=== PATIENT | female | born 1960 | race Caucasian/White ===

== ENCOUNTER 2021-02-16 18:17 | Emergency (ER) | payer OTHER, SELFPAY ==
--- NOTE | ~2021-02-16 | CT_ITS ---
EXAMINATION: CT abdomen pelvis w con DATE: 02/16/2021 19:46 INDICATION: Epigastric abdominal pain and cramping for one day TECHNIQUE: Computed tomography (CT) of the abdomen and pelvis was performed with 100 cc Omnipaque 350 intravenous contrast. Automated exposure control and iterative reconstruction technique were employe d. Exam dose: 314.22 mGy-cm total exam DLP. COMPARISON: 02/16/2019 CT abdomen pelvis FINDINGS: There is a small sliding hiatal hernia. Diffuse hepatic steatosis. No hepatic, splenic, pancreatic, and adrenal or renal space-occupying mass lesion is detected. The gallbladder is present and appears unremarkable. No bile duct or pancreatic duct dilatation. Normal caliber of the abdominal aorta. No intraperitoneal or retroperitoneal or pelvic mass lesion or adenopathy or ascites. There is thickening of the wall of the terminal ileum. There is some fecal-like content in the distal ileum and there is fluid distention of much of the sma ll bowel, measuring up to 2.5 cm diameter, with air-fluid levels. Findings suggest Crohn's disease or other inflammatory or infectious enteritis. There is mild fluid in the cecum. The colon is relatively evacuated. Minimal sigmoid colon diverticulosis; no CT evidence of diverticulitis. No intraperitoneal free air. There is a small amount of free fluid in the left paracolic gutter and b etween some small bowel loops and in the dependent pelvis. There is normal caliber of the abdominal aorta. No intraperitoneal or retroperitoneal or pelvic mass lesion or adenopathy. No suspicious osteolytic or osteoblastic lesions IMPRESSION: Thickening of the wall of terminal ileum, distal ileal mild fecal content, numerous smal l bowel segments with fluid and air-fluid levels. Findings suggest Crohn's disease or other inflammat ory or infectious enteritis Small sliding hiatal hernia Hepatic steatosis Minimal free fluid in the abdomen and pelvis Reviewed, dictated and finalized at [facility]. Reviewed, dictated and finalized at location [facility]. 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 Finding s suggest Crohn's disease or other inflammatory or infectious enteritis Small sliding hiatal hernia Hepatic steatosis Minimal free fluid in the abdomen and pelvis
[2021-02-16 18:30] VITALS: BP 154/76; PULSE 87; RESP 18; TEMP 37.1; O2SAT 98
[2021-02-16] MEDS: SODIUM CHLORIDE 0.9% IV 1,000 ML 1000 ML (18:41)
--- NOTE | 2021-02-16 18:56 | ED.NAVMDI ---
HPI - Nausea/Vomiting/Diarrhea General Chief complaint: Nausea/Vomiting/Diarrhea Stated complaint: POSSIBLE BLOCKAGE Time Seen by Provider: 02/16/21 18:20 Source: patient and RN notes reviewed Mode of arrival: ambulatory Limitations: no limitations History of Present Illness MD elicited complaint: nausea, vomiting and abdominal pain Pertinent past history: bowel obstruction and abdominal surgery Onset (ago): hour(s) (12) Description of vomiting: watery Associated nausea: Yes Associated abdominal pain: Yes Location of pain: epigastric and periumbilical Radiation: other (none) Severity: moderate Pain scale (0-10): 6 Quality: cramping, aching and dull Exacerbating factors: none Relieving factors: none Associated symptoms: loss of appetite, malaise and nausea/vomiting Related Data Allergies Allergy/AdvReac Type Severity Reaction Status Date / Time Sulfa (Sulfonamide AdvReac Unknown Rash Verified 02/16/21 18:43 Antibiotics) Review of Systems Review of Systems: All systems reviewed & are unremarkable except as noted in HPI and below Gastrointestinal: Gastrointestinal: Reports abdominal pain, Reports nausea and Reports vomiting PMFSH Past Medical History Medical History Brain bleed FHx: bowel obstruction Surgical History Surgical History History of hysterectomy for cancer Social History Social History Smoking status: Never smoker Second hand tobacco smoke exposure: No Alcohol intake: former Substance use: never Gender identity (if verbalized by the patient): Female Exam Const: General: no acute distress and alert Nutritional Appearance: well nourished Orientation/consciousness: patient oriented x3 Limitations: no limitations HENMT: Head: normal to inspection Ears: external ears normal and TM's normal bilaterally General nose exam: Normal external nose present and Normal nares present Mouth: Yes lip normal and Yes moist mucous membranes Teeth and gingiva: dentition normal Eyes: Cornea: corneas normal Pupils: Equal, round and reactive pupils present EOM: EOMs intact bilaterally Neck: Neck: normal visual inspection and no lymphadenopathy Chest: Chest palpation & inspection: normal inspection of the chest Resp: Effort & Inspection: normal respiratory effort Auscultation: clear to auscultation bilaterally Cardio: Rate: regular rate Rhythm: regular rhythm GI: GI Palp: Yes Soft to palpation and Yes Tenderness to palpation present (GI) Percussion: Yes normal to percussion Auscultation: normal bowel sounds : General: Yes bladder normal to palpation and Yes no CVA tenderness Back/Spine/Pelvis: Back: no CVA tenderness Skin: General skin exam: normal color Rashes: no rashes Neuro: General: patient oriented x3, moves all extremities, no meningeal signs, no focal motor deficits and CN's II-XI intact bilaterally Extrem: General: normal to inspection and no pedal edema Psych: Appearance: grossly normal and well kempt Mental Status: mental status grossly normal Thought content: Yes Normal thought content present Course Course Emergency Course: Pt was stable in the ED. Less painful. For home with Rx. Reevaluation(s) Reevaluation #1: No acute GI loss in the ED. Pt was comfortable and wanted to go home. Date: 02/16/21 Time: 19:16 Vital Signs Vital signs: Vital Signs Temperature 37.1 C 02/16/21 18:30 Pulse Rate 87 02/16/21 18:30 Respiratory Rate 18 02/16/21 18:30 Blood Pressure 154/76 H 02/16/21 18:30 Pulse Oximetry 98 02/16/21 18:30 Temperature 37.1 C 02/16/21 18:30 Pulse Rate 75 02/16/21 19:32 Respiratory Rate 20 02/16/21 19:32 Blood Pressure 160/80 H 02/16/21 19:32 Pulse Oximetry 96 02/16/21 19:32 MDM - Nausea/Vomiting/Diarrhea Differential Diagnosis Differential diagnosis
[2021-02-16] MEDS: ONDANSETRON INJ 4 MG/2 ML VIAL IV PUSH ×2 (19:01→21:25)
[2021-02-16] MEDS: PANTOPRAZOLE SODIUM IV 40 MG VIAL IV PUSH (19:02)
[2021-02-16] MEDS: MORPHINE SULFATE (*CRX) 2 MG/ML INJ IV PUSH (19:04)
[2021-02-16 19:06] VITALS: BP 148/80; PULSE 85; RESP 16; O2SAT 98
[2021-02-16 19:08] LABS: Basophils Absolute Auto 0.02 K/mm3 (0.00-0.10); Basophils Percent Auto 0.2 % (0.0-1.0); Hematocrit 46.6 % (35.0-49.0); Hemoglobin 15.9 g/dL (12.0-15.0); Immature Granulocyte Absolute 0.07 K/mm3 (0.00-0.00); Immature Granulocyte Percent A 0.6 % (0.0-0.0); Lymphocytes Absolute Auto 0.94 K/mm3 (1.10-4.50); Lymphocytes Percent Auto 7.7 % (18.0-42.0); Mean Corpuscular HGB Conc 34.1 g/dL (32.0-36.0); Mean Corpuscular Hemoglobin 29.7 pg (27.0-31.0); Mean Corpuscular Volume 86.9 fL (78.0-102.0); Mean Platelet Volume 10.3 fl (9.2-11.8); Monocytes Absolute Auto 0.48 K/mm3 (0.10-0.90); Neutrophils Absolute Auto 10.6 K/mm3 (1.7-7.2); Neutrophils Percent Auto 87.5 % (50.0-70.0); Platelet Count Result 209 K/mm3 (150-420); Red Blood Count 5.36 M/mm3 (4.20-5.40); Red Cell Distribution Width 12.1 % (11.6-14.4); White Blood Count 12.2 K/mm3 (4.8-10.8)
--- NOTE | 2021-02-16 19:15 | PC.NURSE ---
Report given to SHAUNA Li.
[2021-02-16 19:23] LABS: Alanine Aminotransferase 25 U/L (14-59); Albumin Level 3.8 g/dL (3.4-5.0); Alkaline Phosphatase 55 U/L (46-116); Anion Gap 13 mmol/L (8-16); Aspartate Amino Transferase 13 U/L (15-37); Bilirubin,Total 1.4 mg/dL (0.00-1.00); Blood Urea Nitrogen 16 mg/dL (7-18); Calcium 9.2 mg/dL (8.5-10.1); Carbon Dioxide 26 mmol/L (21-32); Chloride 101 mmol/L (98-108); Estimated CRCL calculation 47 ml/min; Estimated Glomerular Filt Rate 52; Glucose 148 mg/dL (70-99); Lipase 81 U/L (73-393); Osmolality Calculated 294 mOsm/kg (285-295); Potassium 3.7 mmol/L (3.5-5.1); Sodium 140 mmol/L (136-145); Total Protein 7.8 g/dL (6.4-8.2)
[2021-02-16 19:26] LABS: Lactic Acid Reflex 1.6 mmol/L (0.4-2.0)
[2021-02-16 19:32] VITALS: BP 160/80; PULSE 75; RESP 20; O2SAT 96
[2021-02-16 20:00] LABS: Add Urine Microscopic? YES; Bilirubin Urine 1+ (Negative); Blood Urine 1+ (Negative); Color Urine Yellow (Yellow); Glucose Urine UA Negative (Negative); Ketones Urine 2+ (Negative); Leukocyte Esterase Ur Negative (Negative); Nitrate Urine Negative (Negative); Protein Urine 2+ (Negative); Specific Grav Ur >= 1.030 (1.010-1.020); Urobilinogen Urine 0.2 mg/dL (0.2-1.0); pH Urine 5.5 (5.0-8.0)
[2021-02-16 20:11] LABS: Appearance Urine Sl Cloudy (Clear); Bacteria Urine 1+ /hpf; Hyaline Casts Urine 50+ /lpf; RBC Urine 0-2 /hpf (0-2); Squamous Epithelial Cell Urine Many /hpf (Few); WBC Urine 0-3 /hpf (0-3)
[2021-02-16 20:12] LABS: Mucus Urine Heavy /lpf
[2021-02-16 21:38] VITALS: BP 153/75; PULSE 84; RESP 18; TEMP 36.7; O2SAT 96
[2021-02-16 21:42] VITALS: BP 153/75; PULSE 84; RESP 16; TEMP 36.9; O2SAT 96
== END 2021-02-16 21:43 | disposition home or self-care (01) ==
PROVIDERS: Emergency Provider Emergency Medicine; PCP Family Medicine
DX: K52.9 Noninfective gastroenteritis and colitis, unspecified (principal); N39.0 Urinary tract infection, site not specified
CPT/HCPCS: 36415; 74177; 80053; 81001; 83605; 83690; 85025; 87040; 96361; 96365; 96375; 96376; 99283; 99284; C9113; J0696; J2270; J2405; J7030; Q9967

== ENCOUNTER 2021-02-17 16:41 | Observation (INO) | payer OTHER, SELFPAY ==
--- NOTE | ~2021-02-17 | XR_ITS ---
EXAMINATION: XR abdomen NG/feed tube insert EXAM DATE: 02/17/2021 20:33 INDICATION: NG placement . Terminal ileitis, ileus. TECHNIQUE: Frontal projection(s) of the abdomen for interpretation. Comparison is made to prior exami nation from earlier same date. FINDINGS: There is a nasogastric tube, tip and side-port project over gastric bubble, expected locati on. Again there are mildly dilated air-filled loops of small bowel, most likely ileus. Some component of partial small bowel obstruction from terminal ileitis not excludable. Lung bases are unremarkable . IMPRESSION: 1. Feeding tube in position. 2. Mildly dilated small bowel. Reviewed, dictated and finalized at location [facility]. 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
--- NOTE | ~2021-02-17 | XR_ITS ---
EXAMINATION: XR abdomen obstructive series EXAM DATE: 02/17/2021 17:28 INDICATION: Central abd pain x 3 days with n/v. hx of uterine cancer. TECHNIQUE: Frontal upright projection of the upper abdomen, frontal projection of the lower abdomen f or interpretation. Correlation is made to CT abdomen pelvis from yesterday. FINDINGS: There are several loops of mildly distended air-filled small bowel. There may be mild wall thickening, edema of one lower pelvic bowel loop in particular, with prominent fold pattern. Correla tion was made with CT from yesterday, which demonstrated findings consistent with terminal ileitis, m ild ileus proximally. Posterior colonic stool and gas. Lung bases unremarkable. There are no osseous abnormalities identified. IMPRESSION: Mildly dilated small bowel, lower pelvic loop with evidence of wall edema. Consistent wit h terminal ileitis, ileus. No free intraperitoneal gas. Reviewed, dictated and finalized at location [facility]. 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 Consistent with terminal ileitis, ileus. No free intraperitoneal gas.
[2021-02-17 16:48] VITALS: BP 136/72; PULSE 86; RESP 16; TEMP 37; O2SAT 96
--- NOTE | 2021-02-17 16:55 | ED.ABDPAIN ---
HPI - Abdominal Pain General Chief Complaint: Abdominal Pain Stated Complaint: AMB Time Seen by Provider: 02/17/21 17:02 Source: patient Mode of arrival: EMS Limitations: no limitations History of Present Illness HPI narrative: 60-year-old woman with a history of hysterectomy, chemotherapy and abdominal radiation therapy for cancer comes to the emergency department complaining of abdominal distension, abdominal pain, cramping, vomiting and diarrhea. Her symptoms started 2 days ago. She has had no fever, blood in her stool, blood in her vomitus, chest pain, shortness of breath, cough or cold symptoms, dysuria or hematuria. CT scan performed yesterday showed numerous small bowel segments with fluid and air-fluid levels and thickening of the wall of the terminal ileum. She states that she has had bowel obstruction in the past which responded to decompression. She has never had surgery for bowel obstructions. She has tolerated small amount of fluids today but no solid food. MD elicited complaint: abdominal pain Pertinent past history: other (Abdomen, pelvis radiation for cancer) Onset (ago): day(s) (2) Pain Consistency: constant Location: diffuse Severity: moderate Quality: cramping Radiation: none Migration to: no migration Exacerbating factors: eating Relieving factors: nothing Associated symptoms: nausea, vomiting and diarrhea Related Data Allergies Allergy/AdvReac Type Severity Reaction Status Date / Time Sulfa (Sulfonamide AdvReac Unknown Rash Verified 02/16/21 18:43 Antibiotics) Review of Systems Review of Systems: All systems reviewed & are unremarkable except as noted in HPI and below Constitutional: Constitutional: Denies chills and Denies fever(s) ENT: Denies nasal congestion and Denies sore throat Cardiovascular: Cardiovascular: Denies chest pain and Denies radiating jaw, neck or arm pain Respiratory: Respiratory: Denies cough, Denies dyspnea and Denies wheezing Gastrointestinal: Gastrointestinal: Reports abdominal pain, Reports diarrhea, Reports nausea and Reports vomiting Genitourinary: Genitourinary: Denies hematuria, Denies nocturia and Denies dysuria Musculoskeletal: Musculoskeletal: Denies back pain, Denies arthralgias and Denies joint swelling Integumentary/Breasts: Skin/Breast: Denies pruritus, Denies erythema and Denies rash Endocrine: Endocrine: Denies polydipsia and Denies polyuria Hematologic/Lymphatic: Hematologic/Lymphatic: Denies easy bleeding and Denies easy bruising Allergic/Immunologic: Allergic/Immunologic: Denies lip swelling and Denies throat swelling [facility] Past Medical History Medical History Brain bleed FHx: bowel obstruction Surgical History Surgical History History of hysterectomy for cancer Social History Social History Smoking status: Never smoker Second hand tobacco smoke exposure: No Alcohol intake: former Substance use: never Gender identity (if verbalized by the patient): Female Exam Const: General: healthy appearing and alert Orientation/consciousness: patient oriented x3 Limitations: no limitations Other: Moderate acute distress. HENMT: Head: normal to inspection Ears: external ears normal, TM's normal bilaterally and EAC's normal General nose exam: Normal nares present Face and sinus: normal facial exam Mouth: Yes moist mucous membranes Throat: posterior oropharynx normal Eyes: Conjunctivae: conjunctivae normal Pupils: Equal, round and reactive pupils present EOM: EOMs intact bilaterally Resp: Effort & Inspection: normal respiratory effort and not labored Auscultation: clear to auscultation bilaterally, no rales, no rhonchi and no wheezes Cardio: Rate: regular rate Rhythm: regular rhythm Heart sounds: no murmurs GI: GI Palp: Yes Soft to palpation, Yes Tenderness t
[2021-02-17 17:33] LABS: Basophils Absolute Auto 0.03 K/mm3 (0.00-0.10); Basophils Percent Auto 0.4 % (0.0-1.0); Eosinophils Absolute Auto 0.02 K/mm3 (0.02-0.50); Eosinophils Percent Auto 0.2 % (1.0-6.0); Hematocrit 45.5 % (35.0-49.0); Hemoglobin 15.2 g/dL (12.0-15.0); Immature Granulocyte Absolute 0.03 K/mm3 (0.00-0.00); Immature Granulocyte Percent A 0.4 % (0.0-0.0); Lymphocytes Absolute Auto 0.96 K/mm3 (1.10-4.50); Lymphocytes Percent Auto 11.3 % (18.0-42.0); Mean Corpuscular HGB Conc 33.4 g/dL (32.0-36.0); Mean Corpuscular Volume 89.7 fL (78.0-102.0); Mean Platelet Volume 10.3 fl (9.2-11.8); Monocytes Absolute Auto 0.69 K/mm3 (0.10-0.90); Monocytes Percent Auto 8.1 % (2.0-11.0); Neutrophils Absolute Auto 6.8 K/mm3 (1.7-7.2); Neutrophils Percent Auto 79.6 % (50.0-70.0); Platelet Count Result 208 K/mm3 (150-420); Red Blood Count 5.07 M/mm3 (4.20-5.40); Red Cell Distribution Width 12.2 % (11.6-14.4); White Blood Count 8.5 K/mm3 (4.8-10.8)
[2021-02-17] MEDS: ONDANSETRON INJ 4 MG/2 ML VIAL IV PUSH ×2 (17:40→23:56)
[2021-02-17] MEDS: MORPHINE SULFATE (*CRX) 4 MG/ML INJ IV PUSH (17:40)
[2021-02-17] MEDS: SODIUM CHLORIDE 0.9% IV 1,000 ML 999 ML IV CONT (17:40)
[2021-02-17] MEDS: PANTOPRAZOLE SODIUM IV 40 MG VIAL IV PUSH (17:40)
[2021-02-17 17:46] LABS: Alanine Aminotransferase 22 U/L (14-59); Albumin Level 3.4 g/dL (3.4-5.0); Alkaline Phosphatase 47 U/L (46-116); Anion Gap 11 mmol/L (8-16); Aspartate Amino Transferase 10 U/L (15-37); Bilirubin,Total 1.4 mg/dL (0.00-1.00); Blood Urea Nitrogen 16 mg/dL (7-18); Calcium 8.7 mg/dL (8.5-10.1); Carbon Dioxide 27 mmol/L (21-32); Chloride 100 mmol/L (98-108); Estimated CRCL calculation 54 ml/min; Estimated Glomerular Filt Rate > 60; Glucose 116 mg/dL (70-99); Lipase 90 U/L (73-393); Osmolality Calculated 288 mOsm/kg (285-295); Potassium 3.6 mmol/L (3.5-5.1); Sodium 138 mmol/L (136-145)
[2021-02-17 18:50] LABS: Add Urine Microscopic? YES; Appearance Urine Clear (Clear); Bilirubin Urine Negative (Negative); Blood Urine 1+ (Negative); Color Urine Yellow (Yellow); Glucose Urine UA Negative (Negative); Ketones Urine 2+ (Negative); Leukocyte Esterase Ur Negative LEU/UL (Negative); Nitrate Urine Negative (Negative); Protein Urine Negative (Negative); Specific Grav Ur 1.025 (1.010-1.020); Urobilinogen Urine 0.2 mg/dL (0.2-1.0)
[2021-02-17 18:55] LABS: Amorphous Sediment Urine Few; RBC Urine 0-2 /hpf (0-2); Squamous Epithelial Cell Urine Moderate /hpf (Few); WBC Urine 0-3 /hpf (0-3)
[2021-02-17 18:56] LABS: Bacteria Urine Trace /hpf; Mucus Urine Few /lpf
[2021-02-17 19:35] VITALS: BP 136/70; PULSE 78; RESP 18; O2SAT 98
--- NOTE | 2021-02-17 19:51 | PC.NURSE ---
Patient request to wait before trying again
[2021-02-17] MEDS: HYDROmorphone HCL INJ (*CRX) 2 MG/ML VIAL 0.5 MG IV PUSH ×2 (20:00→23:56)
[2021-02-17 20:30] VITALS: BP 140/70; PULSE 85; RESP 16; TEMP 36.6; O2SAT 98
[2021-02-17 20:58] VITALS: BP 140/70; PULSE 88; RESP 20; TEMP 36.6; O2SAT 96
--- NOTE | 2021-02-17 21:09 | PC.NURSE ---
to room 227 ER Hold
--- NOTE | 2021-02-17 21:30 | PC.NURSE ---
Addendum entered by Jena Arroyo RN 02/18/21 01:41: Integumentary and Neurological systems were also within normal limits. Original Note: Initial assessment completed. Cardiovascular, genitourinary, HENT, musculoskeletal, reproductive, and respiratory systems all within normal limits. Gastrointestinal system: patient has pain of 6-7 in abdominal area, with nausea. Patient has a history of small bowel obstruction. She is on an NG tube with low intermittent suction. Drainage is clear/yellow fluid, which appears to be thin. Patient stated she is tired, and would like to rest.
[2021-02-17 21:40] VITALS: BP 138/67; PULSE 69; RESP 14; TEMP 36.6; O2SAT 95
[2021-02-17] MEDS: DEXTROSE 5%/0.9% SOD CHL 1,000 ML 200 ML IV CONT (21:48)
[2021-02-18] VITALS (7 sets, daily range): BP systolic 136–164; BP diastolic 66–86; PULSE 64–77; RESP 16–20; TEMP 36.5–37; O2SAT 20–97
--- NOTE | 2021-02-18 02:10 | PC.NURSE ---
Patient rounding completed. Patient is sleeping comfortably in bed, with no signs of pain or discomfort.
[2021-02-18] MEDS: HYDROmorphone HCL INJ (*CRX) 2 MG/ML VIAL 0.5 MG IV PUSH ×6 (03:07→22:36)
[2021-02-18] MEDS: DEXTROSE 5%/0.9% SOD CHL 1,000 ML 200 ML IV CONT ×4 (03:08→19:14)
--- NOTE | 2021-02-18 04:13 | PC.NURSE ---
Completed patient rounding. Patient is sleeping comfortably in bed, with no signs of pain or discomfort.
--- NOTE | 2021-02-18 05:11 | PC.NURSE ---
Completed patient rounding. Patient is still sleeping comfortably in bed, with no signs of pain or discomfort. Charted output, with a 0 for output from NG tube through the Nare, as it is less than 100 mLs (the first rené on the container). The clear/yellow fluid is not quite covering the bottom of the container.
[2021-02-18 05:17] LABS: Basophils Absolute Auto 0.02 K/mm3 (0.00-0.10); Basophils Percent Auto 0.3 % (0.0-1.0); Eosinophils Absolute Auto 0.01 K/mm3 (0.02-0.50); Eosinophils Percent Auto 0.1 % (1.0-6.0); Hemoglobin 13.2 g/dL (12.0-15.0); Immature Granulocyte Absolute 0.05 K/mm3 (0.00-0.00); Immature Granulocyte Percent A 0.7 % (0.0-0.0); Lymphocytes Absolute Auto 0.82 K/mm3 (1.10-4.50); Lymphocytes Percent Auto 12.1 % (18.0-42.0); Mean Corpuscular HGB Conc 32.2 g/dL (32.0-36.0); Mean Corpuscular Hemoglobin 29.7 pg (27.0-31.0); Mean Corpuscular Volume 92.3 fL (78.0-102.0); Mean Platelet Volume 10.2 fl (9.2-11.8); Monocytes Absolute Auto 0.57 K/mm3 (0.10-0.90); Monocytes Percent Auto 8.4 % (2.0-11.0); Neutrophils Absolute Auto 5.3 K/mm3 (1.7-7.2); Neutrophils Percent Auto 78.4 % (50.0-70.0); Platelet Count Result 178 K/mm3 (150-420); Red Blood Count 4.44 M/mm3 (4.20-5.40); Red Cell Distribution Width 12.4 % (11.6-14.4); White Blood Count 6.8 K/mm3 (4.8-10.8)
[2021-02-18 05:41] LABS: Alanine Aminotransferase 19 U/L (14-59); Albumin Level 2.8 g/dL (3.4-5.0); Alkaline Phosphatase 37 U/L (46-116); Anion Gap 6 mmol/L (8-16); Aspartate Amino Transferase < 10 U/L (15-37); Bilirubin,Total 0.6 mg/dL (0.00-1.00); Blood Urea Nitrogen 11 mg/dL (7-18); Calcium 7.8 mg/dL (8.5-10.1); Carbon Dioxide 28 mmol/L (21-32); Chloride 106 mmol/L (98-108); Estimated CRCL calculation 67 ml/min; Estimated Glomerular Filt Rate > 60; Glucose 177 mg/dL (70-99); Osmolality Calculated 293 mOsm/kg (285-295); Potassium 3.9 mmol/L (3.5-5.1); Sodium 140 mmol/L (136-145)
[2021-02-18 05:45] LABS: Lactic Acid Reflex 0.9 mmol/L (0.4-2.0)
--- NOTE | 2021-02-18 06:04 | PC.NURSE ---
Completed patient rounding. Patient is sleeping comfortably in bed, with no signs of pain or discomfort.
--- NOTE | 2021-02-18 06:23 | PC.NURSE ---
Patient's called to ask about patient's progress through the night. Told him that patient had slept off and on, and was using her pain medication every 3 hours. Explained that she was still using Zofran to help with her nausea. will call later on today for an update.
[2021-02-18] MEDS: ONDANSETRON INJ 4 MG/2 ML VIAL IV PUSH ×3 (06:50→22:36)
--- NOTE | 2021-02-18 07:00 | PC.NURSE ---
Completed patient rounding. Patient asked to use commode, then stated she was having diarrhea, and it was coming out now. Patient was helped to the commode. She was able to clear herself up independently. While sitting on the commode, her NG tube fell out . Patient had a moderate amount of liquid diarrhea, brown with some small amount of soft stool. Patient stated that after she has a bowel movement, her pain usually begins to subside. Completed change of shift report while in patient's room.
--- NOTE | 2021-02-18 08:45 | PC.NURSE ---
NG tube had fallen out, physician notified and ordered to have reinserted. Patient tolerated well w/tube inserted into Left Nare w/proper placement and suction attached.
--- NOTE | 2021-02-18 13:08 | PC.NURSE ---
Patient resting comfortably in bed at this time. C/o pain in abdomen with pain meds given and effective.
--- NOTE | 2021-02-18 13:11 | PC.NURSE ---
Lanny from [facility] in [place] called and they do not have a bed as of now and do not anticipate one today. Rhina on 2nd floor notified.
--- NOTE | 2021-02-18 13:29 | PM.TDS ---
Transfer Discharge Sum: Prov Provider Primary care physician: Brian Machado, DS: Admitting Diagnosis Discharge Date 02/20/21 Admitting Diagnosis small bowel obstruction Transfer Discharge Sum: Med Medications Active and Home Medications: Home Medications acetaminophen [Tylenol] 650 mg PO Q8H PRN #20 cap 02/16/21 [Rx Confirmed 02/17/21] amoxicillin 875 mg PO Q12H #20 tablet 02/16/21 [Rx Confirmed 02/17/21] omeprazole magnesium [Prilosec OTC] 20 mg PO BID #20 tablet 02/16/21 [Rx Confirmed 02/17/21] ondansetron HCl [Zofran] 4 mg PO Q8H #14 tablet 02/16/21 [Rx Confirmed 02/17/21] Active Medications Hydromorphone HCl (Hydromorphone Hcl Inj (*Crx) 2 Mg/Ml Vial) 0.5 mg IV PUSH Q3H PRN PRN Reason: Pain Rated 7-10 Last Admin: 02/18/21 10:21 Dose: 0.5 mg Documented by: Dextrose/Sodium Chloride (Dextrose 5% Sodium Chloride 0.9%) 1,000 mls @ 200 mls/hr IV CONT .Q5H ARANZA Last Admin: 02/18/21 08:42 Dose: 200 mls/hr Documented by: Ondansetron HCl (Ondansetron Inj 4 Mg/2 Ml Vial) 4 mg IV PUSH Q6H PRN PRN Reason: Nausea And Vomiting Last Admin: 02/18/21 06:50 Dose: 4 mg Documented by: Transfer Discharge Sum: Hosp Hospital Course Hospital course: Sydney Silver is a 60 year old female with a positive family history of colon cancer with positive oncogenesgenes presumably FAP, recurrent colonic polyps for which she gets yearly colonoscopy, endometrial cancer status post hysterectomy/chemo/RT was admitted yesterday with abdominal pain, nausea, vomiting and diarrhea for the past [address] She had a [address] of the abdomen which revealed thickening of the wall of the terminal ileum a numerous small bowel segments with fluid and air-fluid levels. The patient wanted to be transferred to [facility] where her GI specialist is located. The patient did not want to consider transfer to any other facility. The patient was admitted as an ER extension and treated with NG suction and IV fluids. A repeat x-ray of the abdomen done this morning the mean mildly dilated small bowel loops without evidence of wall edema consistent with terminal ileitis and several loops of mildly distended and filled small bowel. Today the patient complains of ongoing abdominal pain which is much less than yesterday. No vomiting today as she has the NG to suction which has drained 200 mL in the past shift. The patient is passing flatus and had a small bowel movement. On examination blood pressure 164/70, pulse is 72, temperature of 36.9? alert and oriented without any focal deficit. ENT- moist mucous membranes. Chest- coarse breath sounds bilaterally present. No added sounds.- CVS- S1-S2 regular. No gallop or murmur appreciated. Abdomen- is soft. Bowel sounds are present. No tenderness/ rigidity / rebound. Diagnosis- terminal ileitis. Small-bowel obstruction Plan- continue conservative management with IV fluids and NG to suction. The patient appears clinically better. The patient's x-ray and CT scan is very suggestive of terminal ileitis. The patient has had multiple colonoscopies over the past few years and the last 1 was done very recently. Discussed with the patient about transferring her to a different facility as we do not have any surgical expertise here. Austin Alejo The patient was not transferred. The note shows up as a transfer note what it actually is a progress note. Time Spent with Patient Time attestation: Total time spent providing and/or coordinating transfer services: DS: Data Data Completed and Pending Labs on day of discharge: Labs from last 24 hours 02/18/21 02/18/21 02/18/21 04:53 04:53 04:53 WBC 6.8 RBC 4.44 Hgb 13.2 Hct 41.0 MCV 92.3 MCH 29.7 MCHC 32.2 RDW 12.4 Plt Count 178 MPV 10.2 Immature Gran % (Auto) 0.7 H Neut % (Auto) 78.4 H Lymph % (Auto) 12.1 L Bacon % (Auto) 8.4 Eos % (Auto) 0.1 L Baso % (Auto) 0.3 Lymph # (Auto) 0.82 L Bacon # (A
[2021-02-18 13:56] LABS: Amphetamine Screen Urine Negative (Negative); Barbiturate Screen Urine Negative (Negative); Benzodiazepines Screen Urine Negative (Negative); Cannabinoid Screen Urine Negative (Negative); Cocaine Screen Urine Negative (Negative); Methadone Screen Urine Negative (Negative); Opiate Screen Urine Positive (Negative); Phencyclidine Screen Urine Negative (Negative)
--- NOTE | 2021-02-18 18:52 | PC.NURSE ---
Lanny from [facility] in [place] called, still no bed for the pt. Floor notified.
--- NOTE | 2021-02-18 20:10 | PC.NURSE ---
ERP Dr Alejo in to see pt. Pt resting c NG tube in place to intermittent suction, about 50 ml clear light greenish colored bile output noted. Pt denies any pain at this time. ERP discussed need for transfer to another facility c pt since no beds still unavailable at [facility]. Pt accepts to go to [place] if able, then discussed c pts. spouse on phone about need for transfer and explained in detail to spouse the reason for delays and no beds available anywhere for transfer. Explained to spouse going to try other facilities since [place] has no beds available. Pt resting comfortably, call john in place at pts side. Abd soft at this time, tender on palpation, good + BS noted x4 quadrants.
[2021-02-18 20:20] LABS: Basophils Absolute Auto 0.02 K/mm3 (0.00-0.10); Basophils Percent Auto 0.2 % (0.0-1.0); Eosinophils Absolute Auto 0.02 K/mm3 (0.02-0.50); Eosinophils Percent Auto 0.2 % (1.0-6.0); Hematocrit 38.2 % (35.0-49.0); Hemoglobin 12.3 g/dL (12.0-15.0); Immature Granulocyte Absolute 0.14 K/mm3 (0.00-0.00); Immature Granulocyte Percent A 1.6 % (0.0-0.0); Lymphocytes Absolute Auto 1.53 K/mm3 (1.10-4.50); Lymphocytes Percent Auto 17.7 % (18.0-42.0); Mean Corpuscular HGB Conc 32.2 g/dL (32.0-36.0); Mean Corpuscular Hemoglobin 29.6 pg (27.0-31.0); Mean Platelet Volume 10.1 fl (9.2-11.8); Monocytes Absolute Auto 0.64 K/mm3 (0.10-0.90); Monocytes Percent Auto 7.4 % (2.0-11.0); Neutrophils Absolute Auto 6.3 K/mm3 (1.7-7.2); Neutrophils Percent Auto 72.9 % (50.0-70.0); Platelet Count Result 173 K/mm3 (150-420); Red Blood Count 4.15 M/mm3 (4.20-5.40); Red Cell Distribution Width 12.5 % (11.6-14.4); White Blood Count 8.6 K/mm3 (4.8-10.8)
[2021-02-18] MEDS: LACTATED RINGERS 1,000 ML 150 ML IV CONT (20:20)
[2021-02-18 20:29] LABS: Anion Gap 6 mmol/L (8-16); Blood Urea Nitrogen 6 mg/dL (7-18); Calcium 7.9 mg/dL (8.5-10.1); Carbon Dioxide 28 mmol/L (21-32); Chloride 107 mmol/L (98-108); Estimated CRCL calculation 75 ml/min; Estimated Glomerular Filt Rate > 60; Glucose 131 mg/dL (70-99); Osmolality Calculated 291 mOsm/kg (285-295); Potassium 3.3 mmol/L (3.5-5.1); Sodium 141 mmol/L (136-145)
--- NOTE | 2021-02-18 21:17 | PC.NURSE ---
Call to Sera at [place], no beds available for transfer. Dr Alejo aware, will try [facility] [place]. Call placed to [facility] for possible transfer, will call back c beds if available and surgeon. Pt informed of POC and possible transfer. Pt continues to rest, has no c/o at this time. VSS.
--- NOTE | 2021-02-18 22:38 | PC.NURSE ---
Call back from Dr Diana at [facility], refusal for transfer or acceptance. ERP Dr Alejo discussed POC c pt. to keep here tonight and try for transfer if beds available tomorrow.
--- NOTE | 2021-02-18 23:17 | PC.NURSE ---
Pt resting in side lying position, reports pain and nausea much better p given meds. Lights dimmed, call john in reach and advised pt to call if anything needed. VSS at this time.
--- NOTE | 2021-02-19 01:27 | PC.NURSE ---
Pt awake, resting at this time, reports no pain, call john within reach.
--- NOTE | 2021-02-19 02:40 | PC.NURSE ---
Pt assisted to BSC, urinated and assisted back to bed, pt sitting upright in bed, states cramping is back and nausea is back, pain med and nausea medication administered. Light dimmed and pt wants to sit up in bed for a bit. Abd. soft, tender, NG to low intermittent suction draining clear light greenish tinged bile
[2021-02-19] MEDS: ONDANSETRON INJ 4 MG/2 ML VIAL IV PUSH ×2 (02:43→10:04)
[2021-02-19] MEDS: HYDROmorphone HCL INJ (*CRX) 2 MG/ML VIAL 0.5 MG IV PUSH (02:44)
[2021-02-19] MEDS: LACTATED RINGERS 1,000 ML 150 ML IV CONT ×3 (02:50→17:06)
[2021-02-19 07:46] VITALS: BP 174/84; PULSE 64; RESP 20; TEMP 36.8; O2SAT 94
--- NOTE | 2021-02-19 08:28 | PC.NURSE ---
Patient resting in bed, awake and alert. C/O headache w/cold compress applied to forehead w/moderate relief. NG tube placed properly w/suction functional. Transfer pending confirmation of bed placement.
--- NOTE | 2021-02-19 12:36 | PC.NURSE ---
[facility] in [place], still no open bed, not likely today, will call if that changes
--- NOTE | 2021-02-19 13:05 | PC.NURSE ---
NG tube clamped and diet advanced to Clear Liquid for lunch w/10% consumed and tolerated good. No c/o abdominal pain or cramping noted at this time. Patient has had 2 small-moderate watery BM's.
[2021-02-19 13:41] VITALS: BP 169/78; PULSE 67; RESP 20; TEMP 37.4; O2SAT 92
[2021-02-19 15:22] LABS: Basophils Absolute Auto 0.03 K/mm3 (0.00-0.10); Basophils Percent Auto 0.3 % (0.0-1.0); Eosinophils Absolute Auto 0.05 K/mm3 (0.02-0.50); Eosinophils Percent Auto 0.6 % (1.0-6.0); Hematocrit 37.6 % (35.0-49.0); Hemoglobin 12.4 g/dL (12.0-15.0); Immature Granulocyte Absolute 0.22 K/mm3 (0.00-0.00); Immature Granulocyte Percent A 2.4 % (0.0-0.0); Lymphocytes Absolute Auto 1.21 K/mm3 (1.10-4.50); Lymphocytes Percent Auto 13.4 % (18.0-42.0); Mean Corpuscular Volume 90.8 fL (78.0-102.0); Mean Platelet Volume 10.5 fl (9.2-11.8); Monocytes Absolute Auto 0.56 K/mm3 (0.10-0.90); Monocytes Percent Auto 6.2 % (2.0-11.0); Neutrophils Absolute Auto 6.9 K/mm3 (1.7-7.2); Neutrophils Percent Auto 77.1 % (50.0-70.0); Platelet Count Result 178 K/mm3 (150-420); Red Blood Count 4.14 M/mm3 (4.20-5.40); Red Cell Distribution Width 12.1 % (11.6-14.4)
--- NOTE | 2021-02-19 15:28 | PC.NURSE ---
New orders received for patient to be advanced to full liquid diet and to leave the NG tube in place.
[2021-02-19 15:38] LABS: CRP 2.7 mg/dL (0.0-0.9)
--- NOTE | 2021-02-19 15:59 | PC.NURSE ---
New order received from Dr. Webber to d/c NG tube.
[2021-02-19 16:01] LABS: Alanine Aminotransferase 23 U/L (14-59); Albumin Level 2.9 g/dL (3.4-5.0); Alkaline Phosphatase 64 U/L (46-116); Anion Gap 4 mmol/L (8-16); Aspartate Amino Transferase < 10 U/L (15-37); Bilirubin,Total 0.8 mg/dL (0.00-1.00); Blood Urea Nitrogen 8 mg/dL (7-18); Calcium 8.4 mg/dL (8.5-10.1); Carbon Dioxide 32 mmol/L (21-32); Chloride 102 mmol/L (98-108); Estimated CRCL calculation 70 ml/min; Estimated Glomerular Filt Rate > 60; Glucose 101 mg/dL (70-99); Osmolality Calculated 284 mOsm/kg (285-295); Potassium 3.2 mmol/L (3.5-5.1); Sodium 138 mmol/L (136-145); Total Protein 6.3 g/dL (6.4-8.2)
[2021-02-19 16:47] VITALS: BP 175/82; PULSE 64; RESP 20; TEMP 37.3; O2SAT 95
--- NOTE | 2021-02-19 17:07 | PC.NURSE ---
NG tube removed and diet advanced to full liquid diet. Patient tolerated removal NG tube well.
--- NOTE | 2021-02-19 17:49 | PC.NURSE ---
Patient consumed 50% full liquid diet @ dinner
--- NOTE | 2021-02-19 23:29 | PC.NURSE ---
Pt whiteboard updated. Pt was in the process of ambulating to the bedside commode. Call light within reach.
[2021-02-19] MEDS: methylPREDNISolone SOD SUCC 40 MG VIAL 20 MG IV PUSH (23:58)
[2021-02-20 00:05] VITALS: BP 156/88; PULSE 71; RESP 14; TEMP 37.1; O2SAT 95
--- NOTE | 2021-02-20 00:23 | P.PNCROSS_ITS ---
Event Note Event Note Event Note: S: Sydney was feeling better. Her appetite had increased, pain decreased as well as nausea. She was amenable to clamping the NG tube and advancing her diet. She tolerated full liquids and the NG tube was pulled after she had multple BM. O: Lying in bed without signs of distress. NOrmal bowel sounds. No TTP. See chart for vitals. A/P: Obstruction type symptoms improving. Given repeat labs showed no white count and symptoms did not worsen I believed her picture was more consistent with IBD so steroids were started and we continued to advance her diet all while awaiting transfer. [facility] was contacted multiple times but no bed was open.
--- NOTE | 2021-02-20 00:32 | PC.NURSE ---
Pt complained of squeaking when she breathes. Sydney denies having any pain with this finding, but does finding it annoying. This bond underwriter listened to the area and an audible squeak is present. Charge nurse notified of this finding and stated there could be some irritation from the pt having an NG in place prior. This bond underwriter will continue to assess regularly for any changes.
--- NOTE | 2021-02-20 02:03 | PC.NURSE ---
Patient rounding completed. Pt is currently sleeping on her right side with the bed in the lowest position. Call light within reach.
--- NOTE | 2021-02-20 04:16 | PC.NURSE ---
Patient rounding completed. Sydney is in pleasant mood at this time. A pillow for back support was provided to the pt along with 550 ml of fresh ice water. The expiratory wheeze is still present/audible at the pt's lower larynx. Pt denies pain at the site at this time, but stated she feels it more when laying on her back. Trash cans were emptied in pt room. Pt was laying on her right side with call light within reach when this medical writer exited the room.
[2021-02-20 04:18] VITALS: BP 172/86; PULSE 62; RESP 16; TEMP 37; O2SAT 94
--- NOTE | 2021-02-20 05:44 | PC.NURSE ---
[facility] in [place] called, still no open beds at this time, will call for any changes
[2021-02-20] MEDS: methylPREDNISolone SOD SUCC 40 MG VIAL 20 MG IV PUSH ×3 (05:50→18:03)
[2021-02-20] MEDS: LACTATED RINGERS 1,000 ML 150 ML IV CONT ×2 (06:51)
[2021-02-20 07:45] VITALS: BP 176/84; PULSE 61; RESP 16; TEMP 36.8; O2SAT 96
--- NOTE | 2021-02-20 08:10 | ADMGEN ---
This patient, Sydney Silver, was admitted to 2nd Floor Room 227-2 as and Observation due to small bowel obstruction. Patient/family oriented to hospital policies and general routines including ID bracelet, bed and alarms, visiting hours, pain management, procedures, bathroom and other care routines, personal items, smoking policy, room service/diet, and visiting hours. Information on how to activate the Rapid Response Team has been discussed. Patient/Family are encouraged to report perceived risks to care and to ask questions if they do not understand what they are told or what they should do.
[2021-02-20 09:53] VITALS: BMI 28.2
[2021-02-20 10:13] LABS: Hematocrit 38.1 % (35.0-49.0); Hemoglobin 12.9 g/dL (12.0-15.0); Mean Corpuscular HGB Conc 33.9 g/dL (32.0-36.0); Mean Corpuscular Hemoglobin 29.9 pg (27.0-31.0); Mean Corpuscular Volume 88.2 fL (78.0-102.0); Mean Platelet Volume 10.4 fl (9.2-11.8); Platelet Count Result 173 K/mm3 (150-420); Red Blood Count 4.32 M/mm3 (4.20-5.40); Red Cell Distribution Width 11.9 % (11.6-14.4); White Blood Count 7.9 K/mm3 (4.8-10.8)
[2021-02-20 10:31] LABS: Anion Gap 11 mmol/L (8-16); Blood Urea Nitrogen 10 mg/dL (7-18); Calcium 8.8 mg/dL (8.5-10.1); Carbon Dioxide 28 mmol/L (21-32); Chloride 99 mmol/L (98-108); Estimated CRCL calculation 73 ml/min; Estimated Glomerular Filt Rate > 60; Glucose 140 mg/dL (70-99); Osmolality Calculated 287 mOsm/kg (285-295); Potassium 3.6 mmol/L (3.5-5.1); Sodium 138 mmol/L (136-145)
--- NOTE | 2021-02-20 11:25 | ED.ABDPAIN ---
HPI - Abdominal Pain General Chief Complaint: Abdominal Pain Stated Complaint: AMB Time Seen by Provider: 02/17/21 17:02 Source: patient Mode of arrival: EMS Limitations: no limitations History of Present Illness MD elicited complaint: abdominal pain Pertinent past history: other (Abdomen, pelvis radiation for cancer) Onset (ago): day(s) (2) Pain Consistency: constant Location: diffuse Severity: moderate Quality: cramping Radiation: none Migration to: no migration Exacerbating factors: eating Relieving factors: nothing Associated symptoms: nausea, vomiting and diarrhea Related Data Allergies Allergy/AdvReac Type Severity Reaction Status Date / Time Sulfa (Sulfonamide AdvReac Unknown Rash Verified 02/16/21 18:43 Antibiotics) [facility], [facility] Past Medical History Medical History Brain bleed FHx: bowel obstruction Surgical History Surgical History History of hysterectomy for cancer Social History Social History Smoking status: Never smoker Second hand tobacco smoke exposure: No Alcohol intake: never Substance use: never Gender identity (if verbalized by the patient): Female Spiritual care concerns: No Course Vital Signs Vital signs: Vital Signs Temperature 37.0 C 02/17/21 16:48 Pulse Rate 86 02/17/21 16:48 Respiratory Rate 16 02/17/21 16:48 Blood Pressure 136/72 02/17/21 16:48 Pulse Oximetry 96 02/17/21 16:48 Temperature 36.8 C 02/20/21 07:45 Pulse Rate 61 02/20/21 07:45 Respiratory Rate 16 02/20/21 07:45 Blood Pressure 176/84 H 02/20/21 07:45 Pulse Oximetry 96 02/20/21 07:45 MDM - Abdominal Pain Lab Data Result diagrams: 02/20/21 10:05 02/20/21 10:05 Labs: Lab Results 02/17/21 02/17/21 02/17/21 Range/Units 17:28 17:28 17:28 WBC 8.5 (4.8-10.8) K/mm3 RBC 5.07 (4.20-5.40) M/mm3 Hgb 15.2 H (12.0-15.0) g/dL Hct 45.5 (35.0-49.0) % MCV 89.7 (78.0-102.0) fL MCH 30.0 (27.0-31.0) pg MCHC 33.4 (32.0-36.0) g/dL RDW 12.2 (11.6-14.4) % Plt Count 208 (150-420) K/mm3 MPV 10.3 (9.2-11.8) fl Immature Gran % (Auto) 0.4 H (0.0-0.0) % Neut % (Auto) 79.6 H (50.0-70.0) % Lymph % (Auto) 11.3 L (18.0-42.0) % [place] % (Auto) 8.1 (2.0-11.0) % Eos % (Auto) 0.2 L (1.0-6.0) % Baso % (Auto) 0.4 (0.0-1.0) % Lymph # (Auto) 0.96 L (1.10-4.50) K/mm3 [place] # (Auto) 0.69 (0.10-0.90) K/mm3 Eos # (Auto) 0.02 (0.02-0.50) K/mm3 Baso # (Auto) 0.03 (0.00-0.10) K/mm3 Abs Immat Gran (auto) 0.03 H (0.00-0.00) K/mm3 Absolute Neuts (auto) 6.8 (1.7-7.2) K/mm3 Absolute Nucleated RBC 0.00 (0.00-0.00) K/mm3 Nucleated RBC % 0.0 (0-0.0) % Sodium 138 (136-145) mmol/L Potassium 3.6 (3.5-5.1) mmol/L Chloride 100 (98-108) mmol/L Carbon Dioxide 27 (21-32) mmol/L Anion Gap 11 (8-16) mmol/L BUN 16 (7-18) mg/dL Creatinine 0.93 (0.55-1.02) mg/dL Estim Creat Clear Calc 54 ml/min Estimated GFR > 60 (59 - ) Glucose 116 H (70-99) mg/dL Calculated Osmolality 288 (285-295) mOsm/kg Lactic Acid 1.0 (0.4-2.0) mmol/L Calcium 8.7 (8.5-10.1) mg/dL Total Bilirubin 1.4 H (0.00-1.00) mg/dL AST 10 L (15-37) U/L ALT 22 (14-59) U/L Alkaline Phosphatase 47 (46-116) U/L C-Reactive Protein (0.0-0.9) mg/dL Total Protein 7.0 (6.4-8.2) g/dL Albumin 3.4 (3.4-5.0) g/dL Lipase 90 (73-393) U/L Urine Color (Yellow) Urine Appearance (Clear) Urine pH (5.0-8.0) Ur Specific [place] (1.010-1.020) Urine Protein (Negative) Urine Glucose (UA) (Negative) Urine Ketones (Negative) Ur Blood (Man) (Negative) Urine Nitrate (Negative) Urine Bilirubin (Negative) Urine Urobilinog
--- NOTE | 2021-02-20 13:39 | PM.IMHP ---
H&P: HPI History of Present Illness Date/Time: 02/20/21 13:39 Sydney Silver is a 60 year old female who was an ER hold for the past couple days pending bed availability at another facility for her possible SBO. Today she is being admitted under Observation for her Abdominal Pain. Pt states she had Uterine CA a while ago. After her Hysterectomy, Chemo, and Radiation she started having SBOs which slow became fewer and fewer over time. She states that over the weekend her abdomen started to feel like it did when she would have SBOs in the past. She did come to the ER on 02/16/2021 and subsequently discharged with a UTI and antibiotics. She then returned the next day to the ER. [facility] in [place] was called and Dr. Sweet from our ER spoke with Dr. Rowley who was willing to see this Pt however there were no beds available at that time. She was then placed on and ER hold. Since then she has improved slowly to the point she tolerated a heart healthy diet without increased abdominal pain, Nausea, or Vomiting. Chief Complaint: Abdominal Pain Review of Systems Review of Systems: All systems reviewed & are unremarkable except as noted in HPI and below PMFSH Past Medical History Medical History Brain bleed FHx: bowel obstruction Surgical History Surgical History History of hysterectomy for cancer Social History Social History Smoking status: Never smoker Second hand tobacco smoke exposure: No Alcohol intake: never Substance use: never Gender identity (if verbalized by the patient): Female Spiritual care concerns: No Meds Home Medications and Allergies Home Medications Medication Instructions Recorded Confirmed Type acetaminophen [Tylenol] 650 mg PO Q8H PRN #20 cap 02/16/21 02/17/21 Rx amoxicillin 875 mg PO Q12H #20 tablet 02/16/21 02/17/21 Rx omeprazole magnesium [Prilosec OTC] 20 mg PO BID #20 tablet 02/16/21 02/17/21 Rx ondansetron HCl [Zofran] 4 mg PO Q8H #14 tablet 02/16/21 02/17/21 Rx Allergies Allergy/AdvReac Type Severity Reaction Status Date / Time Sulfa (Sulfonamide AdvReac Unknown Rash Verified 02/16/21 18:43 Antibiotics) Vital Signs Vital Signs - 24 hr 02/19/21 13:41 02/19/21 16:47 02/20/21 00:05 Temperature 99.3 F 99.2 F 98.8 F Pulse Rate 67 64 71 Respiratory Rate 20 20 14 Blood Pressure 169/78 H 175/82 H 156/88 H Pulse Oximetry 92 95 95 02/20/21 04:18 02/20/21 07:45 Temperature 98.6 F 98.3 F Pulse Rate 62 61 Respiratory Rate 16 16 Blood Pressure 172/86 H 176/84 H Pulse Oximetry 94 96 Exam Const: General: cooperative, healthy appearing, comfortable, no acute distress, well developed, alert, awake and Physically active Nutritional Appearance: average body habitus and well nourished Resp: Effort & Inspection: normal respiratory effort Auscultation: clear to auscultation bilaterally Cardio: Rate: regular rate Heart sounds: S1 normal heart sound present and S2 normal heart sound present GI: Inspection: distended GI Palp: Yes Soft to palpation, Yes Tenderness to palpation present (GI) (mild with percussion) and No Guarding due to palpation present (GI) Percussion: Yes normal to percussion and Yes tympanic to percussion (epigastric) Auscultation: Hypoactive bowel sounds present Skin: General skin exam: normal color and dry skin Neuro: General: oriented to person, oriented to place and oriented to time Cranial nerves: Yes CN's II-XII intact bilaterally (grossly intact) Cognition (Neuro): normal cognition Speech: normal speech Gait exam (Neuro): Normal gait present Motor exam (neuro): 5/5 motor strength present throughout Extrem: General: full ROM and no pedal edema Psych: Appearance: grossly normal Mental Status: mental status grossly normal Speech and movement: Normal speech and movement pr
[2021-02-20 15:35] VITALS: BP 163/79; PULSE 62; RESP 18; TEMP 37.2; O2SAT 97
[2021-02-21] VITALS: BP 167/84; PULSE 58; RESP 18; TEMP 36.9; O2SAT 94
[2021-02-21] MEDS: methylPREDNISolone SOD SUCC 40 MG VIAL 20 MG IV PUSH ×3 (00:14→13:30)
[2021-02-21 05:23] LABS: Hematocrit 37.5 % (35.0-49.0); Hemoglobin 12.6 g/dL (12.0-15.0); Mean Corpuscular HGB Conc 33.6 g/dL (32.0-36.0); Mean Corpuscular Hemoglobin 29.5 pg (27.0-31.0); Mean Corpuscular Volume 87.8 fL (78.0-102.0); Mean Platelet Volume 10.4 fl (9.2-11.8); Platelet Count Result 190 K/mm3 (150-420); Red Blood Count 4.27 M/mm3 (4.20-5.40); Red Cell Distribution Width 12.1 % (11.6-14.4); White Blood Count 8.8 K/mm3 (4.8-10.8)
[2021-02-21 05:36] LABS: Anion Gap 10 mmol/L (8-16); Blood Urea Nitrogen 15 mg/dL (7-18); Calcium 8.8 mg/dL (8.5-10.1); Carbon Dioxide 28 mmol/L (21-32); Chloride 100 mmol/L (98-108); Estimated CRCL calculation 64 ml/min; Estimated Glomerular Filt Rate > 60; Glucose 142 mg/dL (70-99); Osmolality Calculated 288 mOsm/kg (285-295); Potassium 3.7 mmol/L (3.5-5.1); Sodium 138 mmol/L (136-145)
[2021-02-21 08:00] VITALS: BP 168/85; PULSE 55; RESP 18; TEMP 36.8; O2SAT 97
--- NOTE | 2021-02-21 08:25 | PM.DS ---
DS: Admitting Diagnosis Discharge Date 02/21/2021 Admitting Diagnosis Abdominal Pain DS: Discharge Diagnosis Discharge Diagnosis (1) Abdominal pain: Code(s): R10.9 - Unspecified abdominal pain Status: Acute Assessment and Plan: DDx: SBO vs Crohn's vs other inflammatory or infectious enteritis, WBC 7.9, Electrolytes and renal function normal, Pt was NPO now with heart healthy diet and tolerating well, Pt did have some diarrhea but this has since started to resolve as Pt is reporting soft stools at this time. Continue with Methylprednisolone and Dilaudid for pain control 02/21/2021 Pt has been improving. She now has no abdominal pain and without any nausea or vomiting. She is tolerating PO food and fluids well. No diarrhea. Pt will be able to follow up with PCP. DS: Summary Hospital Course Hospital Course: Abdominal pain resolved, Pt to follow up with PCP. Time Spent with Patient Time attestation: Total time spent providing and/or coordinating discharge services: < 30 minutes Exam Const: General: cooperative, healthy appearing, comfortable, no acute distress, well developed, alert, awake and Physically active Nutritional Appearance: average body habitus Resp: Effort & Inspection: normal respiratory effort Auscultation: clear to auscultation bilaterally Cardio: Rate: regular rate Heart sounds: S1 normal heart sound present and S2 normal heart sound present GI: GI Palp: Yes Soft to palpation and No Tenderness to palpation present (GI) Auscultation: normal bowel sounds Skin: General skin exam: normal color and dry skin Neuro: General: oriented to person, oriented to place, oriented to time and CN's II-XI intact bilaterally (grossly intact) Cognition (Neuro): normal cognition Speech: normal speech Extrem: General: full ROM and no pedal edema Psych: Appearance: grossly normal Mental Status: mental status grossly normal Speech and movement: Normal speech and movement present Affect: normal affect Attitude: cooperative Thought process: Normal thought process present DS: Data Data Completed and Pending Labs on day of discharge: Labs from last 24 hours 02/21/21 02/21/21 02/20/21 05:08 05:08 10:05 WBC 8.8 RBC 4.27 Hgb 12.6 Hct 37.5 MCV 87.8 MCH 29.5 MCHC 33.6 RDW 12.1 Plt Count 190 MPV 10.4 Sodium 138 138 Potassium 3.7 3.6 Chloride 100 99 Carbon Dioxide 28 28 Anion Gap 10 11 BUN 15 10 Creatinine 0.79 0.68 Estim Creat Clear Calc 64 73 Estimated GFR > 60 > 60 Glucose 142 H 140 H Calculated Osmolality 288 287 Calcium 8.8 8.8 02/20/21 10:05 WBC 7.9 RBC 4.32 Hgb 12.9 Hct 38.1 MCV 88.2 MCH 29.9 MCHC 33.9 RDW 11.9 Plt Count 173 MPV 10.4 Sodium Potassium Chloride Carbon Dioxide Anion Gap BUN Creatinine Estim Creat Clear Calc Estimated GFR Glucose Calculated Osmolality Calcium Discharge Plan Discharge Attending physician on discharge: Luis Sweet Discharging Clinician: Issac Lawton Anticipated Discharge Date/Time: 02/21/21 10:30 Patient Disposition: Home, Self-Care Activity: as tolerated Diet: heart healthy Discharge Instructions: you will have a taper pack of steroids waiting for you at your pharmacy of choice follow up with your PCP and GI provider if you have one. Patient Instructions: Lisinopril (By mouth), Methylprednisolone (By mouth), Abdominal Pain (GEN), Bowel Obstruction (DC) Stand Alone Forms: General Discharge Information Follow-up/Referrals: Dmitry Rowley MD [Other] (Follow up for Gastroenterology ) Jeannette,MD Brian [Primary Care Provider] - 02/24/21 11:30 am Discharge Medications: New methylprednisolone [Medrol ([place])] 4 mg tablets,dose pack See Rx Instructions .ROUTE .COMPLEX Qty: 21 RF: 0 lisinopril 10 mg tablet 10 mg PO DAILY Qty: 30 RF: 0 Continued ondansetron HCl [Zofran] 4 mg tablet 4 mg PO Q8H Qty
--- NOTE | 2021-02-21 13:40 | PC.NURSE ---
Discharge instructions reviewed with patient, verbalizes understanding. Patient ambulated from floor.
--- NOTE | 2021-02-26 14:42 | PC.NURSE ---
Unable to contact for discharge call back.
== END 2021-02-21 13:40 | disposition home or self-care (01) ==
LOC: CHSED 18:26 → CHS2ND 21:03 → CHSED 02-20 08:48 → CHS2ND 02-20 08:48
PROVIDERS: Emergency Medicine; Internal Medicine Critical Care Medicine; Nurse Practitioner Family; Admitting Provider Emergency Medicine; Emergency Provider Family Medicine; PCP Family Medicine; Visit Provider Emergency Medicine
DX: R10.9 Unspecified abdominal pain (principal); Z85.42 Personal history of malignant neoplasm of other parts of uterus; Z80.0 Family history of malignant neoplasm of digestive organs; Z92.3 Personal history of irradiation; Z90.710 Acquired absence of both cervix and uterus
CPT/HCPCS: 36415; 74019; 80048; 80053; 80307; 81001; 83605; 83690; 85025; 85027; 86140; 96361; 96374; 96375; 96376; 99285; C9113; G0378; G0379; J1170; J2270; J2405; J2920; J7030; J7042; J7120

== ENCOUNTER 2022-08-26 08:31 | Outpatient (CLI) | payer OTHER, SELFPAY ==
--- NOTE | ~2022-08-26 | MM_ITS ---
EXAMINATION: MM screening raj BI w keyanna HISTORY: Screening mammogram TECHNIQUE: Craniocaudal and mediolateral oblique 3-D tomosynthesis images were obtained and synthetic 2-D images were generated. CAD analysis was submitted and interpreted. COMPARISON: No prior mammogram is available for comparison at this institution. BREAST PARENCHYMAL COMPOSITION: There are scattered areas of fibroglandular density. FINDINGS: Scattered benign-appearing calcifications are present. No suspicious mass, calcification, o r architectural distortion are identified in either breast to suggest malignancy. IMPRESSION: 1. No mammographic evidence of malignancy. 2. Recommend routine screening mammography in one year. BI-RADS Category 2: Benign finding(s). Reviewed, dictated and finalized at location A.
== END 2022-08-26 08:32 | disposition home or self-care (01) ==
LOC: CHSIMG 08:35
PROVIDERS: PCP Family Medicine; Visit Provider Family Medicine
DX: Z12.31 Encounter for screening mammogram for malignant neoplasm of breast (principal)
CPT/HCPCS: 77063; 77067

== ENCOUNTER 2023-08-30 13:54 | Outpatient (CLI) | payer OTHER, SELFPAY ==
--- NOTE | ~2023-08-30 | MM_ITS ---
EXAMINATION: MM screening raj BI w keyanna HISTORY: Screening TECHNIQUE: Craniocaudal and mediolateral oblique 3-D tomosynthesis images were obtained and synthetic 2-D images were generated. CAD analysis was submitted and interpreted. COMPARISON: 08/26/2022 BREAST PARENCHYMAL COMPOSITION: Not dense: There are scattered areas of fibroglandular density. FINDINGS: There is a dense mildly enlarged left axillary lymph node. There is no evidence of suspicio us mass, calcification, or architectural distortion to suggest malignancy in either breast. IMPRESSION: 1. Mild left axillary lymphadenopathy, new since prior study. 2. Additional spot compression and mediolateral views with possible follow-up breast ultrasound recom mended. BI-RADS Category 0: Incomplete: Needs additional imaging evaluation. Reviewed, dictated and finalized at location A. IMPRESSION: 1. Mild left axillary lymphadenopathy, new since prior study. 2. Additional spot compression and mediolateral views with possible follow-up b reast ultrasound recommended. BI-RADS Category 0: Incomplete: Needs additional imaging evaluation.
== END 2023-08-30 13:55 | disposition home or self-care (01) ==
PROVIDERS: PCP Family Medicine; Visit Provider Family Medicine
DX: Z12.31 Encounter for screening mammogram for malignant neoplasm of breast (principal); R92.8 Other abnormal and inconclusive findings on diagnostic imaging of breast
CPT/HCPCS: 77063; 77067

== ENCOUNTER 2023-09-07 09:39 | Outpatient (CLI) | payer OTHER, SELFPAY ==
--- NOTE | ~2023-09-07 | MMUS_ITS ---
EXAMINATION: MM diagnostic raj LT w keyanna, US breast LT limited HISTORY: Follow-up left breast mass. TECHNIQUE: Additional 3-D tomosynthesis images of the left breast were performed and synthetic 2-D im ages were generated. CAD analysis was submitted and interpreted. High resolution Limited left breast ultrasound was performed. COMPARISON: Comparison to multiple prior studies sequentially, with oldest reviewed study dated 08/26/2022. BREAST PARENCHYMAL COMPOSITION: Not dense: There are scattered areas of fibroglandular density. FINDINGS: MAMMOGRAPHIC FINDINGS: There is a persistent low-density mass with central lucency overlying the pectoralis muscle, most com patible with a axillary lymph node. No suspicious masses, calcifications or architectural distortion in the left breast to suggest malignancy. ULTRASOUND: Limited left breast ultrasound: There are normal-appearing lymph nodes of the left axilla correspondi ng to the mammographic abnormality. No suspicious left breast masses to suggest malignancy. IMPRESSION: 1. No evidence for malignancy in the left breast. 2. . Routine yearly screening mammogram and regular clinical breast examination are recommended. BI-RADS Category 2: Benign finding(s). Reviewed, dictated and finalized at location B. IMPRESSION: 1. No evidence for malignancy in the left breast. 2. . Routine yearly screening mammogram and regular clinical breast examination are recommended. BI-RADS Category 2: Benign finding(s).
== END 2023-09-07 09:40 | disposition home or self-care (01) ==
LOC: CHSIMG 09:41
PROVIDERS: PCP Family Medicine; Visit Provider Family Medicine
DX: R92.8 Other abnormal and inconclusive findings on diagnostic imaging of breast (principal)
CPT/HCPCS: 76642; 77061; 77065; G0279

== ENCOUNTER 2024-09-12 12:46 | Outpatient (CLI) | payer OTHER, SELFPAY ==
--- NOTE | ~2024-09-12 | MM_ITS ---
EXAMINATION: MM screening raj BI w keyanna HISTORY: Screening mammogram TECHNIQUE: Craniocaudal and mediolateral oblique 3-D tomosynthesis images were obtained and synthetic 2-D images were generated. CAD analysis was submitted and interpreted. COMPARISON: 08/30/2023 and 08/26/2022 BREAST PARENCHYMAL COMPOSITION: There are scattered areas of fibroglandular density. FINDINGS: Scattered benign-appearing calcifications are present. No suspicious mass, calcification, o r architectural distortion are identified in either breast to suggest malignancy. IMPRESSION: 1. No mammographic evidence of malignancy. 2. Recommend routine screening mammography in one year. BI-RADS Category 2: Benign finding(s). Reviewed, dictated and finalized at location B.
--- OUTSIDE RECORDS SUMMARY | 2024-09-12 12:52 | XMS_ITS | Clinical Summary ---
Author Organization [facility] Address [address] [place] [address] Care Team Providers Care Shredding Machine Tender Name Role Phone Bert Bee MD Primary Care Provider Source Comments [facility],non-owned Affiliates and Associated Physician Practices is amultiple site organization consisting of ambulatory clinics and hospital sitesin [place], [place], [place] and [place]. This disclosure is being madepursuant to the Care Everywhere program and may not contain all information available regarding this patient. 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 Gender Identity Not on file Sexual Orientation Not on file Last Filed Vital Signs Vital Sign Reading Time Taken Comments Blood Pressure 140/79 09/25/2014 11:17 AM CDT Pulse 64 09/25/2014 11:17 AM CDT Temperature 35.8 C (96.5 F) 08/27/2014 6:53 AM CDT Respiratory Rate 15 08/27/2014 10:15 AM CDT Oxygen Saturation 97% 08/27/2014 10:15 AM CDT Inhaled Oxygen Concentration - - Weight 66.7 kg (147 lb) 09/25/2014 11:17 AM CDT Height 160 cm (5' 3) 08/27/2014 6:53 AM CDT Body Mass Index 26.04 08/27/2014 6:53 AM CDT Plan of Treatment Health Maintenance Due Date Last Done Comments MARK ANTHONY (AGES 45-75) - COL ON CA SCREENING 1961 COLON MONITORING 1961 COLONOSCOPY - COLON CA SCREENING 1961 CT COLONOGRAPHY - COLON CA SCREENING 1961 Colorectal Cancer Screening 1961 FIT - COLON CA SCREENING 1961 FLEX SIG - COLON CA SCREENING 1961 LIPID TESTING 1961 MAMMOGRAM 1961 HIV SCREENING 1976 HEPATITIS C SCREENING 03/11/1979 DTAP/TDAP/TD VACCINES (1 - Tdap) 1980 PNEUMOCOCCAL VACCINE 50+ (1 of 1 - PCV) 2011 ZOSTER VACCINE (1 of 2) 2011 COVID-19 VACCINE (1 - 2023-2 5 season) 2023 DEPRESSION SCREENING 04/12/2024 INFLUENZA VACCINE (Season Ended) 2024 Respiratory Syncytial Virus (RSV) Vaccine Pt: or over 60 yrs (1 - 1-dose 75+ series) 2036 HEPATITIS B VACCINE Aged Out No longe r eligible based on patient's age to complete this topic HIB VACCINE Aged Out No longer eligi ble based on patient's age to complete this topic HPV VACCINE Aged Out No longer eligi ble based on patient's age to complete this topic MENINGOCOCCAL (Group B) VACC INE SHARED DECISION-MAKING Aged Out No longer eligibl e based on patient's age to complete this topic MENINGOCOCCAL GROUPS A/C/Y/W VACCINE Aged Out No longer eligible b ased on patient's age to complete this topic Care Teams Shredding Machine Tender Relationship Specialty Start Date End Date Bert Bee MD [address] [place] [id number] PCP - General 11/13/13
--- OUTSIDE RECORDS SUMMARY | 2024-09-12 12:52 | XMS_ITS | Data Portability ---
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 1. Endometrial cancer: Exam reassuring. Plan for observation. Imaging to be ordered only if clinically indicated. I will have her return in 1 year for a repeat exam. We discussed alert symptoms and indications to follow up sooner. 2. Health care maintenance: Her pcp orders her mammogram. She is encouraged to follow up with her regular providers. 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 She follows closely with Dr. Rowley for annual colonoscopies and Dr. Nava for EGDs. She has no family history of pancreatic cancer. We will see Edu back in 1 year for a repeat exam. She will call sooner with any concerns. dstefko Not available 07/12/2024 13:57:22 Plan of Treatment Reminders Order Date Submit Date Provider Last Modified By Organization Details Last Modified Time Details Appointments Establish ed Patient 20.EST 2025 10:40A M Abbie Ambrosio Not available Not available Not available Lab None recorded. Referral None recorded. Procedures None recorded. Surgeries None recorded. Imaging None recorded. Medication Orders None recorded. Patient TargetsNo targets recorded. Patient InstructionsNo instructions recorded. Reason for Referral None Reported. Results Created Date Observation Date Name Description Value Unit Range Abnormal Flag Note LastModifiedBy Organization Detail LastModifiedTime 05/10/19 25 05/12/2024 surgi trevor patho logy study tissue exam biopsy [facility] [address],[place] [facility] [place] [address] Ph. [phone] Romain Zheng MD, PhD, Medic al Dire tor SIOBHAN ALEMAN MD Patie nt: EDU WAITE Jonas e ID: [id number] Repor t Statu s: Final :1 1959 Case #: [id number] Age: 64 Y Gende r: F Date Colle cted: 05/10 MRN # : [id number] Date Recei vashti: 05/10 Repor taylor Date: 05/12 FINAL DIAGN OSIS: A. Small bowel , duode num, biops y: - Duode nal mucos a with featu res consi stent with nodul ar pepti c duode nitis - Focal benig n gastr ic heter otopi a - No evide nce of faisal c disea se, dyspl frank, or malig ava B. Stoma ch, biops y: - Mild chron ic inact brook gastr itis of oxynt ic mucos a with focal gland ular dilat ation - No evide nce of Helic obact er organ isms ident ified on routi ne H Elect denny shipman Verif ied by Marvin Hurt MD Elect denny ellison 05/12 17:54 SPECI MEN SOURC E: A. Small bowel , duode num, biops y B. Stoma ch, biops y GROSS DESCR IPTIO N: The speci men conta iner( s) and requi sitio n have the same patie nt name. A. Recei vashti in 10% neutr al buffe red forma henrik for forma henrik-f ixed paraf fin-e mbedd ed secti ons label ed A, duode nal biops y are four fragm ents of khanna- traore soft tissu e that are 0.3-0 .6 cm in great est dimen elly. The speci men is entir pamela submi tted for histo logic study in one casse tte. B. Recei vashti in 10% neutr al buffe red forma henrik for forma henrik-f ixed paraf fin-e mbedd ed secti ons label ed B, gastr ic biops y is a singl e fragm ent of khanna- traore soft tissu e that is 0.3 cm in great est dimen elly. The speci men is entir pamela submi tted for histo logic study in one casse tte. CLINI TREVOR INFOR MATIO N: Farah syndr ome. Not Available Sc Only - [facility] Laboratory [address] [place] [address], [id number], 05/12/2024 19:00:42 06/09/19 25 06/09/2024 CT, colon ogram , diagn ostic , w/o contr ast [address] [address] Teleph one Name: Edu Waite [id number] am Date: 2024 Age: 64Phys ician: MD Rowley Brad : 1Ex aminat ion: CT COLONO GRAPHY DX EXAM: Comput ed Tomogr aphy (CT) of the Abdome n/Pelv is (Colon ograph y Screen ing) HISTOR Y: Farah syndro me. Failed annual colono scopy due to strict ure at [facility] districtoi d colon noted during last scope. Uterin e cancer histor y with hyster ectomy , chemot herapy and radiat ion therap y. 1 mg Glucag on given in right upper arm prior to exam.. COMPAR MYA: 021 TECHNI QUE: Non contra st abdome n and pelvis CT perfor med after the colon was insuff lated with carbon dioxid e, in supine and prone positi ons. 1 mg of Glucag on was inject ed subcut aneous ly. Fecal taggin g was perfor med. Sagitt al and monge l recons tructi ons were perfor med. 3-D images includ ing -th rough and dissec tion images were recons tructe d and analyz ed at a separa te workst ation by the [facility] radiol ogist. FINDIN GS: Evalua tion of the solid organs is limite d due to lack of IV contra st. The visual ized lung bases are clear. Limite d evalua tion of the heart and medias tinal struct ures is unrema rkable . GI: A rectal tube is presen t. There is no dilata tion or thicke ankush of the bowel hong. The append ix is unrema rkable . No demons trated mass of the colon or rectum . A 4 mm polyp is seen in the proxim al transv erse colon (171 ). Scatte red coloni c divert iculi are seen withou t eviden ce of divert iculit is. Liver: The liver is normal . Bile Ducts: The intrah epatic and extrah epatic bile ducts are not dilate d. Gallbl adder: No wall thicke ankush, perich olecys tic fluid, or stones are seen. Pancre as: No pancre atic edema, intrap ancrea tic calcif icatio n, or peripa ncreat ic fat strand ing is visibl e. Spleen : Calcif ied granul omas are seen in the spleen . The spleen is otherw ise normal . Adrena ls: The adrena l glands are normal . Kidney s/Uret ers/Bl adder: A 2 mm nonobs tructi ng stone is seen at the inferi or pole of the right kidney . The kidney s are normal . The colle ting system s are not dilate d. Reprod uctive : Calcif ied granul omas are seen. The uterus is absent . The ovarie s are not visual ized. Retrop eriton eum/Me drew y: Scatte red subcen timete r retrop eriton eal lymph nodes are presen t. No mesent brayan lympha denopa thy. No ascite s. No pneumo perito neum. Fat-co ntaini ng umbili trevor hernia is seen. VASCUL AR: The unenha nced vascul ar struct ures are unrema rkable . MUSCUL OSKELE EDNA: The osseou s struct ures are intact . Degene rative change s are seen in the visual ized thorac olumba r spine, bilate ral SI joints , and bilate ral hip joints . IMPRES ELLY: 1. Catego ry C1: normal colon. No polyps greate r than 5 mm. 2. Small nonobs tructi ng right renal stone. Electr onical ly signed in [place] cribe by: LUIS ANGEL Schumacher MD on:05/14 12:17 PM cc: Page PAGE [address] [facility] 1 [email or web address] Sc Only - Sc Radiology [address] [place] [address], [id number], 06/15/2024 13:58:04 Result Notes None recorded. Problems Name Problem SNOMED Code Status Onset Date Resolution Date Notes Provider Name and Address Organization Details Recorded Time Farah syndrome 973290999 Active 2023 [facility] 4 10:51:24 Colitis 53400736 Active 2024 Fiona Chakraborty MD [address] [place] [address], [phone] , [facility] 5 17:10:13 Endometrial carcinoma 784580648 Active 2024 DIANA SU NP [address] [place] [address], [phone] , [facility] 5 13:49:11 Problem Notes None recorded. Procedures Surgical History Date Name Laterality Status Provider Name and Address Organization Details Recorded Time 05/10/19 25 flexible fiberoptic sigmoidoscopy completed [facility] 05/25/2024 11:19:34 Imaging Results None recorded. Procedure Notes None recorded. Medical Equipment None Reported. Allergies Allergen ID Allergen Name Allergen Category Reaction Reaction Severity Criticality Documentation Date Start Date Code Code System Note Provider Name and Address Organization Details Recorded Time 095585 Substance with sulfonami de structure and antibacte rial mechanism of action (substanc e) medicatio n rash Not available Not available 05/10/20232008 28490 8003 SNOMED React ion: Itchi ng; Rash; Not Available [facility] 4 23:30:25 Medications Name Sig Start Date Stop Date Status Note LastModified by Organization Details LastModified Time moxifloxaci n 400 mg tablet Take 1 tablet every day by oral route for 10 days. 07/12 completed Not Available Not Available Not Available Nulytely Lemon-Hopland 420 gram oral solution take prep for CT colonogra phy per instructi on sheet, 4000ml 07/12 completed Not Available Not Available Not Available lisinopril 10 mg tablet Take 1 tablet every day by oral route. active Not Available Not Available No t Available rosuvastati n 20 mg tablet Take 1 tablet every day by oral route. active Not Available Not Available No t Available Vitals Date Recorded Body height Oxygen saturation Oxygen saturation in Arterial blood by Pulse oximetry Heart rate Body temperature Body mass index (BMI) Body weight Systolic blood pressure Diastolic blood pressure Provider Name and Address Organization Details Last Updated DateTime 160.02 cm 97 % 97 % 64 /min 97.7 [degF] 28.5 kg/m2 56738.3 7 g 142 mm[Hg] 84 mm[Hg] Sophia Ferya [facility] 5 11:49:58 Social History None recorded. Functional Status None recorded. Mental Status None recorded. Family History Nothing Reported. Medical History No medical history recorded. Gynecological HistoryNo gynecological history recorded. Obstetrics History GPAL:G 0 P 0 0 0 0 Past Encounters Encounter ID Performer Location Encounter Start Date Encounter Closed Date Diagnosis/Indication Diagnosis SNOMED-CT Code Diagnosis ICD10 Code Diagnosis Note [id number] Fiona Chakraborty MD [facility] ([place]) [address] [place] [phone] 05/10/2024 14:43:28 05/12/2024 13:17:15 [id number] Siobhan Nava MD [facility] Surg ([place]) [address] [place] [phone] 05/10/2024 14:43:29 07/10/2024 10:37:12 [id number] Parminder [place] MD [facility] ASC GI Anesthesi a S [address] [place] [phone] 05/10/2024 15:03:42 05/15/2024 15:23:32 [id number] Fiona Chakraborty MD [facility] ([place]) [address] [place] [address], [address] [place] [phone] 05/10/2024 15:03:43 05/11/2024 10:29:21 [id number] Siobhan Nava MD [facility] ([place]) [address] [place] [address], [address] [place] [address] 05/10/2024 15:03:44 05/12/2024 09:22:23 [id number] DIANA SU NP [address] Gynecolog ic Oncology ([place]) [address] [place] [address],[address] [place] [phone] 07/12/2024 11:28:47 07/13/2024 08:24:45 Farah syndrome 295248552 Z15.09 Endometrial carcinoma 25 2823837 C54.1 Health Concerns Section Related Observation LastModified by Organization Detai ls LastModified Time None Recorded Concern Status LastModified by Organization Details LastModified Time None Recorded Advance Directives Directive None Recorded Payers Insurance Date Sequence Insurance Name Policy Number Policy Villalobos Covered Member ID Villalobos Member ID Guarantor Name 07/27/2024 1 [facility] ON OR AFTER 10/10/20 (MEDICAID REPLACEMENT - HMO) Edu Waite [id number] Edu Waite Notes Date Note Type Note Provider Name and Address Organization Details Recorded Time 05/10/2024 text/html hx farah syndrome Siobhan Nava MD [address] [place] [address], [phone], [facility] 05/10/2024 15:43:57 05/10/2024 text/html [facility] PRE-ANEST HETIC EVALUATIONReported bypatient.Reason for Visit:PROPOSED PROCEDURE: Colonoscopy and EGD; SURGEON: Aleksandra Review of Systems General:Exercise tolerance moderate; Denies SOB, CARPENTER, PND; Denies chest pain or chest tightness Cardiac:Denies any cardiopulmonary disease Prior Anesthetic Complication:no history of anesthesia complications Family Anesthetic Hx:no history of anesthesia complications Physical Exam: AirwayMP II TeethWNL NeckFull range of motion CardiovascularRegular rate and rhythm RespiratoryClear to auscultation bilaterally GastrointestinalNPO status >6 hrs solids, >2 hrs clear liquids Vital Signs:Vital signs reviewed. Please refer to nursing preop note for values Assessment:ASA PS: II Plan:MAC Discussion:I have discussed with the patient the anesthetic plan, alternatives, pertinent risks, and complications; including but not limited to PONV, dental injury, sore throat, IA, stroke, etc. All questions were answered. Patient verbalize(s) understanding and agree(s) to proceed. 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 She status post surgical staging procedure followed by definitive radiation therapy and 3 cycles of carboplatin and taxol. Treatment was completed in July 2009. Since then she's been no evidence of disease. Edu is doing well today. She offers no issues or concerns. She denies vaginal bleeding or discharge. She's having normal bowel and bladder function. She denies abdominal or pelvic pain. She's eating well without nausea. DIANA SU NP [address] [place] [address], [phone], [facility] 07/12/2024 13:57:44 OBGyn Episode No OBEpisode recorded.
== END 2024-09-12 12:47 | disposition home or self-care (01) ==
PROVIDERS: PCP Family Medicine; Visit Provider Family Medicine
DX: Z12.31 Encounter for screening mammogram for malignant neoplasm of breast (principal)
CPT/HCPCS: 77063; 77067

== ENCOUNTER 2024-09-28 10:30 | Outpatient (RCR) | payer OTHER, SELFPAY ==
--- NOTE | 2024-09-28 12:09 | OPREHPOC ---
Outpatient Therapy Plan of Care This is a Multidisciplinary Plan of Care that may contain components documented by all disciplines (PT, OT, and ST.) PT Problem 1 PT Problem #1 Knowledge Deficit PT Goal 1 Goal / Goal Update Independent and compliant with HEP. Target Visit 2 PT Problem 2 PT Problem #2 Pain PT Goal 1 Goal / Goal Update Pt to be able to lie flat in supine with no more than 2/10 low back pain to improve comfort when sleeping. Target Visit 8 PT Problem 3 PT Problem #3 Impaired Strength PT Goal 1 Goal / Goal Update Pt to improve gross bilateral hip strength to 5/5. Pt to improve lower abdominal strength to 4+/5. Target Visit 8 PT Problem 4 PT Problem #4 Impaired Functional Mobility PT Goal 1 Goal / Goal Update Pt to sleep at night, being awoken no more than 3 times due to low back pain. Pt to report 15% or less perceived disability on Oswestry. Target Visit 8
--- NOTE | 2024-09-28 12:09 | PTOPEVAL1 ---
Assessment and note entered by Tatyana Olvera, PT Evaluation Information Assessment Status Evaluation ICD-10 Condition Codes (PT) Pain in low back M54.50,Radiculopathy, lumbar region M54.16 Subjective Information Pt reports her back has been hurting for at least 3 months and has gotten worse recently. Her pain is located in her lower back and goes into the front of her hips and groin bilaterally. She states the pain worsens when she's been standing for a while, walking, doing yard work, and lying flat on her back. Her pain is primarily worse at night and severely interferes with her sleep. She denies NTB down the legs but does report that her legs will ache occasionally when her back pain is really bad. Pt has a history of uterine cancer 15 years ago, states she had everything removed and was treated with chemo and radiation. Also states her doctor told her she has a kidney stone and was going to order an x-ray for her. States the doctor wants her to do PT before getting an MRI. Reported Pain Level Pain Score 0,0: Self Report Assessment PT Clinical Summary Mrs. Silver is a 64 yo female presenting to skilled PT for low back and bilateral hip/groin pain. Upon evaluation she denies pain but reports her back pain increases with prolonged standing, walking and yard work. Her pain is most severe at night and prevents her from sleeping. Pt demonstrates mild deficits in hip and abdominal weakness as well as flexibility deficits in bilateral hips, however all other areas of the objective assessment could not reproduce her pain. Pt would benefit from skilled PT intervention to improve strength and lumbar stability for functional tasks, but given pt's history of uterine cancer she would also likely benefit from imaging of the abdomen and/or lumbar spine to rule out any possible recurrence or other GI pathologies that may contribute to low back pain. Plan of Care Interventions Neuro Re-education,Therapeutic Activities, Therapeutic Exercise,Self-Care/Home Management PT Services Indicated Yes Treatment Frequency and 2x/week for 8 visits Duration These treatments will address the objective and functional deficits as defined above. The patient will be advanced safely and appropriately in order for the patient to progress towards his/her prior level of function. Additional exercises will be introduced and as well as a comprehensive home exercise program upon discharge, if needed, ?to ensure carryover of functional gains achieved in the clinic. This treatment plan has been reviewed and agreement upon by the patient.
--- NOTE | 2024-10-31 08:45 | PTOPDC ---
Assessment and note entered by Keturah Peralta DPT Evaluation Information Assessment Status Evaluation Diagnosis low back pain ICD-10 Condition Codes (PT) Pain in low back M54.50,Radiculopathy, lumbar region M54.16 Subjective Information Patient reports that since starting PT she has improved. She reports that groin pain has decreased. She reports across low back is still stiff especially with prolonged activity. She reports that sleeping has improved and she has been waking up a few times. She reports compliance with HEP. Reported Pain Level Pain Score 2,2: Self Report Assessment PT Clinical Summary Ms. Silver attended 10 visits of skilled PT with good progress towards goals. She did not meet all goals but did progress towards each. She is able to sleep with less disturbance, stand for house hold tasks and less groin pain. She is independent with HEP and is appropriate for DC at this time. Plan of Care PT Services Indicated No
== END 2024-10-31 20:00 | disposition home or self-care (01) ==
LOC: CHSPT 10:30
PROVIDERS: PCP Family Medicine; Visit Provider Family Medicine
DX: M54.16 Radiculopathy, lumbar region (principal)
CPT/HCPCS: 97110; 97112; 97150; 97161; 97530

== ENCOUNTER 2024-09-28 11:52 | Outpatient (CLI) | payer OTHER, SELFPAY ==
--- NOTE | ~2024-09-28 | XR_ITS ---
3 VIEWS LUMBAR SPINE Ordering provider: Brian Machado, History: . Lumbar radicular pain . Comparison: None. FINDINGS: VERTEBRAL BODIES: No visible fracture or subluxation. Degenerative changes of the spine. Bilateral sacroiliitis. DISK SPACES: Normal. SOFT TISSUES: Normal. IMPRESSION: No acute osseous abnormality lumbar spine. Bilateral sacroiliacs. Reviewed, dictated and finalized at location A.
--- OUTSIDE RECORDS SUMMARY | 2024-09-28 12:33 | XMS_ITS | Clinical Summary ---
Author Organization [facility] Address [address] [place] [address] Care Team Providers Care Automotive Metalsmith Name Role Phone Bert Bee MD Primary Care Provider [phone] Source Comments [facility],non-owned Affiliates and Associated Physician Practices is amultiple site organization consisting of ambulatory clinics and hospital sitesin [place], [place], [place] and [place]. This disclosure is being madepursuant to the Care Everywhere program and may not contain all information available regarding this patient. 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
--- OUTSIDE RECORDS SUMMARY | 2024-09-28 12:33 | XMS_ITS | Clinical Summary ---
Author Organization [facility] Address [facility] [place] [address] Care Team Providers Care Crusher Name Role Phone Bert Bee MD Primary Care Provider [phone] Issac Williamson MD Unavailable Unavailabl e Anupam Kraft MD Unavailable Tiffany Camargo MD Unavailable [phone] Allergies Active Allergy Reactions Criticality Noted Date Comments Sulfa Antibiotics Rash,Itching High 11/13/2013 Medications lisinopril 10 MG tablet Take 10 mg by mouth daily. 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 Overview (07/20/2018): left nostril Resolved Problems Problem Noted Date Diagnosed Date Resolved Date Preop cardiovascular exam 07/20/2018 Family History Medical History Relation Comments Colon Cancer Father Diabetes Mother Relation Status Comments Father Mother Social History Tobacco Use Types Packs/Day Years Used Date Smoking Tobacco: Never Smokeless Tobacco: Never Alcohol Use Standard Drinks/Week Comments No 0 (1 standard drink = 0.6 oz pur e alcohol) AUDIT-C Answer Date Recorded Frequency of Alcohol Consumption Never 07/19/2018 Average Number of Drinks Not on file 019 Frequency of Binge Drinking Not on file 12/2018 Comments No Sex and Gender Information Value Date Recorded Sex Assigned at Not on file Legal Sex Female 8:35 PM CDT Gender Identity Not on file Sexual Orientation Not on file 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 Not on file Not on file Last Filed Vital Signs Vital Sign Reading Time Taken Comments Blood Pressure 136/74 03/18/2020 1:48 PM DIRECTOR CAMP Pulse 71 03/18/2020 1:48 PM DIRECTOR CAMP Temperature 36.5 C (97.7 F) 03/18/2020 11:56 AM DIRECTOR CAMP Respiratory Rate 16 03/18/2020 1:48 PM DIRECTOR CAMP Oxygen Saturation 100% 03/18/2020 1:48 PM DIRECTOR CAMP Inhaled Oxygen Concentration - - Weight 70.8 kg (156 lb) 03/18/2020 11:56 AM DIRECTOR CAMP Height 160 cm (5' 3) 03/18/2020 11:56 AM DIRECTOR CAMP Body Mass Index 27.63 03/18/2020 11:56 AM DIRECTOR CAMP Plan of Treatment Health Maintenance Due Date Last Done Comments Annual Physical 1963 Hepatitis C 1979 DTaP, Tdap and Td Vaccines ( 1 - Tdap) 1980 Pneumococcal Vaccine: 50+ Years (1 of 1 - PCV) 2011 Zoster Vaccines (1 of 2) 2011 Mammogram Screening 08/14/2021 08/15/2019 COVID-19 Vaccine (1 - 2023-2 5 season) 2023 Colorectal Cancer Screening Colonoscopy (10 Years) 03/18/2030 03/18/2020, 03/18/2020 RSV Immunization or 60+ Years (1 - 1-dose 75+ series) 2036 Meningococcal B Vaccine Aged Out No l onger eligible based on patient's age to complete this topic Meningococcal Vaccine Aged Out No markus ian eligible based on patient's age to complete this topic RSV Immunizations Under 20 Months Aged Out No longer eligible b ased on patient's age to complete this topic Procedures Procedure Name Priority Date/Time Associated Diagnosis Comments COLONOSCOPY Routine 03/18/2020 11:58 AM DIRECTOR CAMP MG SCREENING W NELLA MACK DIGI Routine 08/15/2019 10:57 AM CDT Visit for screening mammogram from Last 3 Months or Most Recently Relevant to Health Maintenance Results * MG SCREENING W NELLA MACK DIGI (08/15/2019 10:57 AM CDT) Anatomical Region Laterality Modality Breast Bilateral Mammography 08/16/2019 8:27 AM CDT Impressions 08/16/2019 8:28 AM CDT IMPRESSION: No suspicious change since theprevious exams. Recommendation: 1: Routine screening mammogram Bilateral in 1 Year Assessment: ACR BI-RADS Category 2 - Benign. Interpreted By: Simon Payne, 08/16/2019 8:27 AM Narrative 08/16/2019 8:28 AM CDT Examination: Digital screening mammogram with CAD. Clinical history: Asymptomatic patient presents for routine screening. Comparison: 06/01/2018, 05/11/2017, 05/08/2016, 04/19/2015. Technique: Bilateral digital mammograms. The exam was interpreted with the use of a computer-aided detection (CAD) system. Additional 3-D tomosynthesis images were acquired. Tissue density: The breast tissue is heterogeneously dense. Findings: The breast tissue is heterogeneously dense. The dense tissue may obscure some lesions mammographically. Benign-appearing calcification noted. No suspicious mass, microcalcification or area of architectural distortion can be identified. From a mammographic standpoint, routine followup in one year would seem adequate.. Mallory Fournier PA-C MAMMO Final Result from Last 3 Months or Most Recently Relevant to Health Maintenance Insurance MEDICAID Care Teams Crusher Relationship Specialty Start Date End Date Bert Bee MD [address] [place], [place] [phone] PCP - General FAMILY PRACTICE 07/19/18 Issac Williamson MD [address] [place] [phone] CARDIOVASCULAR DISEASE 07/19/18 Anupam Kraft MD [address] [place], [place] [phone] Surgeon SURGERY 07/20/18 Tiffany Camargo MD [address] [place] [address] [address] [place] [address] DERMATOLOGY 07/20/18
--- OUTSIDE RECORDS SUMMARY | 2024-09-28 12:33 | XMS_ITS | Data Portability ---
Author Organization [facility], [address] [place] [address] [place]rology ([place]) Address [address] [place] [address] Care Team Providers Care Art Class Model Name Role Phone KEIRA DUMONT Primary Care Provider [phone] Assessment Encounter Date Assessment Date Assessment LastModified [...] [address],[place] [address] Ph. [phone] Romain Zheng MD, PhD, Medic al Dire tor SIOBHAN ALEMAN MD Patie nt: EDU WAITE Jonas e ID: [id number] Repor t Statu s: Final :1 1959 Case #: [id number] Age: 64 Y Gende r: F Date Colle cted: 05/10 MRN # : [id number] Date Recei vashti: 05/10 Repor taylor [...] Not Available Sc Only - Sc Laboratory [address] [place] [address], [id number], 05/12/2024 19:00:42 06/09/19 25 06/09/2024 CT, colon ogram , diagn ostic , w/o contr ast [address] [address] Teleph one Name: Edu Waite [id number] am Date: 2024 Age: 64Phys ician: MD Rowley Brad : 1Ex aminat ion: CT COLONO GRAPHY DX EXAM: Comput ed Tomogr aphy (CT) of the Abdome n/Pelv is (Colon ograph y Screen ing) HISTOR Y: Farah syndro me. [facility] during last scope. Uterin [...] a separa te workst ation by the [facility] radiol ogist. 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 Uterine cancer history with hysterectomy, chemotherapy and radiation therapy. 1 mg Glucagon given in right upper arm prior to exam.. COMPARISON: 02/16/2021 TECHNIQUE: Non contrast abdomen and pelvis CT performed after the colon was insufflated with carbon dioxide, in supine and prone positions. 1 mg of Glucagon was injected subcutaneously. Fecal tagging was performed. Sagittal and coronal reconstructions were performed. 3-D images including fly-through and dissection images were reconstructed and analyzed at a separate workstation by the interpreting radiologist. FINDINGS: Evaluation of the solid organs is limited due to lack of IV contrast. The visualized lung bases are clear. Limited evaluation of the heart and mediastinal structures is unremarkable. GI: A rectal tube is present. There is no dilatation or thickening of the bowel hong. The appendix is unremarkable. No demonstrated mass of the colon or rectum. A 4 mm polyp is seen in the proximal transverse colon (5/171). Scattered colonic diverticuli are seen without evidence of diverticulitis. Liver: The liver is normal. Bile Ducts: The intrahepatic and extrahepatic bile ducts are not dilated. Gallbladder: No wall thickening, pericholecystic fluid, or stones are seen. Pancreas: No pancreatic edema, intrapancreatic calcification, or peripancreatic fat stranding is visible. Spleen: Calcified granulomas are seen in the spleen. The spleen is otherwise normal. Adrenals: The adrenal glands are normal. Kidneys/Ureters/Bladder: A 2 mm nonobstructing stone is seen at the inferior pole of the right kidney. The kidneys are normal. The collecting systems are not dilated. Reproductive: Calcified granulomas are seen. The uterus is absent. The ovaries are not visualized. Retroperitoneum/Mesentery: Scattered subcentimeter retroperitoneal lymph nodes are present. No mesenteric lymphadenopathy. No ascites. No pneumoperitoneum. Fat-containing umbilical hernia is seen. VASCULAR: The unenhanced vascular structures are unremarkable. MUSCULOSKELETAL: The osseous structures are intact. Degenerative changes are seen in the visualized thoracolumbar spine, bilateral SI joints, and bilateral hip joints. IMPRESSION: 1. Category C1: normal colon. No polyps greater than 5 mm. 2. Small nonobstructing right renal stone. 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, [facility] 4 10:51:24 Colitis 21380014 Active 2024 Fiona Chakraborty MD [address] [place] [address], [phone] , [facility] 5 17:10:13 Endometrial carcinoma 244711459 Active 2024 DIANA SU NP [address] [place] [address], [phone] , [facility] 5 13:49:11 Problem Notes None recorded. Procedures Surgical History Date Name Laterality Status Provider Name and Address Organization Details Recorded Time 05/10/19 flexible fiberoptic sigmoidoscopy completed Bibiana Chicarlyn [facility] 05/25/2024 11:19:34 Imaging Results None recorded. Procedure Notes None recorded. Medical Equipment None Reported. Allergies Allergen ID Allergen Name Allergen Category Reaction Reaction Severity Criticality Documentation Date Start Date Code Code System Note Provider Name and Address Organization Details Recorded Time 895744 Substance with sulfonami de structure and antibacte rial mechanism of action (substanc e) medicatio n rash Not available Not available 05/10/20232008 15715 8003 SNOMED React ion: Itchi ng; Rash; Not Available [facility] 4 23:30:25 Medications Name Sig Start Date Stop Date Status Note LastModified by Organization Details LastModified Time moxifloxaci n 400 mg tablet Take 1 tablet every day by oral route for 10 days. 07/12 completed Not Available Not Available Not Available Nulytely Lemon[place] 420 gram oral solution take prep for [...] and Address Organization Details Last Updated DateTime 5 160.02 cm 97 % 97 % 64 /min 97.7 [degF] 28.5 kg/m2 31665.3 7 g 142 mm[Hg] 84 mm[Hg] Sophia Freya [facility] 5 11:49:58 Social History None recorded. Functional Status None recorded. Mental Status None recorded. Family History Nothing Reported. Medical History No medical history recorded. Gynecological HistoryNo gynecological history recorded. Obstetrics History GPAL:G 0 P 0 0 0 0 Past Encounters Encounter ID Performer Location Encounter Start Date Encounter Closed Date Diagnosis/Indication Diagnosis SNOMED-CT Code Diagnosis ICD10 Code Diagnosis Note [id number] Fiona Chakraborty MD [facility] ([place]) [address] [place] [phone] 05/10/2024 14:43:28 05/12/2024 13:17:15 [id number] Siobhan Nava MD [facility] ([place]) [address] [place] [phone] 05/10/2024 14:43:29 07/10/2024 10:37:12 [id number] Parminder Sampson MD [facility] GI Anesthesi a S [address] [place] [address] 05/10/2024 15:03:42 05/15/2024 15:23:32 [id number] Fiona Chakraborty MD [facility] ([place] [address] [place] [phone] 05/10/2024 15:03:43 05/11/2024 10:29:21 [id number] Siobhan Nava MD [facility] ([place]) [address] [address] 05/10/2024 15:03:44 05/12/2024 09:22:23 [id number] DIANA SU, STEPHANIE [address] Gynecolog ic Oncology ([place]) [address] [place] [address],[address] [address] 07/12/2024 11:28:47 07/13/2024 08:24:45 Farah syndrome 788582369 Z15.09 Endometrial carcinoma 25 0439950 C54.1 Health Concerns Section Related Observation LastModified by Organization Detai ls LastModified Time None Recorded Concern Status LastModified by Organization Details LastModified Time None Recorded Advance Directives Directive None Recorded Payers Insurance Date Sequence Insurance Name Policy Number Policy Villalobos Covered Member ID Villalobos Member ID Guarantor Name 07/27/2024 1 [facility] ON OR AFTER 10/10/20 (MEDICAID REPLACEMENT - HMO) Edu Waite [id number] Edu Waite Notes Date Note Type Note Provider Name and Address Organization Details Recorded Time 05/10/2024 text/html hx farah syndrome Siobhan Nava MD [address] [place] [address], [phone], [facility] 05/10/2024 15:43:57 05/10/2024 text/html [facility] PRE-ANEST HETIC EVALUATIONReported bypatient.Reason for Visit:PROPOSED [...] limited to PONV, dental injury, sore throat, WA, stroke, etc. All questions were answered. Patient verbalize(s) understanding and agree(s) to proceed. Parminder Sampson MD [address] [place] [address], [phone], [facility] 05/10/2024 15:17:05 07/12/2024 text/html This is a [...] without nausea. DIANA SU NP [address] [place] [address], [phone], [facility] 07/12/2024 13:57:44 OBGyn Episode No OBEpisode recorded.
--- OUTSIDE RECORDS SUMMARY | 2024-09-28 12:33 | XMS_ITS | Encounter Summary ---
Author Organization [facility] Address [facility] [place] [address] Care Team Providers Care Asphalt Paver Operator Name Role Phone Bert Bee MD Primary Care Provider [phone] Issac Williamson MD Unavailable Unavailabl e Anupam Kraft MD Unavailable [phone] Tiffany Camargo MD Unavailable [phone] Encounter Details Date Type Department Care Team (Late st Contact Info) Description 07/19/2018 Abstract [facility] [address] [place] [address] Issac Williamson MD Social History Tobacco Use Types Packs/Day Years Used Date Smoking Tobacco: Never Smokeless Tobacco: Never Alcohol Use Standard Drinks/Week Comments No 0 (1 standard drink = 0.6 oz pur e alcohol) AUDIT-C Answer Date Recorded Frequency of Alcohol Consumption Never 07/19/2018 Average Number of Drinks Not on file 019 Frequency of Binge Drinking Not on file 12/2018 Comments Unknown Sex and Gender Information Value Date Recorded Sex Assigned at Not on file Legal Sex Female 8:35 PM CDT Gender Identity Not on file Sexual Orientation Not on file 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 Not on file Not on file documented as of this encounter Functional Status documented as of this encounter Plan of Treatment Not on file documented as of this encounter Visit Diagnoses Not on filedocumented in this encounter Additional Health Concerns Infection Onset Date Last Indicated Resolved Time COVID-19 Rule Out 2020 2020 03/16/2020 4:51 PM NPS documented as of this encounter Care Teams Asphalt Paver Operator Relationship Specialty Start Date End Date Bert Bee MD [address] [place], [place] [phone] PCP - General FAMILY PRACTICE 07/19/18 Issac Williamson MD [address] [place] [phone] CARDIOVASCULAR DISEASE 07/19/18 Anupam Kraft MD [address] [place], [place] [phone] Surgeon SURGERY 07/20/18 Tiffany Camargo MD [address] [place] [address] [address] [place] [address] DERMATOLOGY 07/20/18 documented as of this encounter
== END 2024-09-28 11:53 | disposition home or self-care (01) ==
LOC: CHSIMG 11:53
PROVIDERS: PCP Family Medicine; Visit Provider Family Medicine
DX: M54.16 Radiculopathy, lumbar region (principal); M46.1 Sacroiliitis, not elsewhere classified
CPT/HCPCS: 72100

== ENCOUNTER 2025-01-12 09:47 | Outpatient (CLI) | payer OTHER, SELFPAY ==
--- NOTE | ~2025-01-12 | XR_ITS ---
EXAMINATION: XR hip RT min 2V, 01/12/2025 9:55 CDT HISTORY: right hip pain, NKI COMPARISON: No comparisons available. Findings: No acute fracture or malalignment. No significant degenerative changes. Soft tissues unremarkable. Impression: No acute fracture or malalignment. Reviewed, dictated and finalized at location P. Impression: No acute fracture or malalignment.
--- OUTSIDE RECORDS SUMMARY | 2025-01-12 09:53 | XMS_ITS | Clinical Summary ---
Author Organization [facility] Address [address] [facility] [place] [address] Care Team Providers Care High Lift Driver Name Role Phone Bert Bee MD Primary Care Provider [phone] Source Comments [facility],non-owned Affiliates and Associated Physician Practices is amultiple site organization consisting of ambulatory clinics and hospital sitesin [place], [place], [place] and [place]. This disclosure is being madepursuant to the Care Everywhere program and may not contain all information available regarding this patient. Last updated 17.[facility] Allergies Active Allergy Reactions Criticality Noted Date [...] on file Legal Sex Female 6:16 PM [employer] CLE[employer] Gender Identity Not on file Sexual Orientation [...] 2011 ZOSTER VACCINE (1 of 2) 2011 DEPRESSION SCREENING 04/12/2024 COVID-19 VACCINE (1 - 2023-2 5 season) 2024 INFLUENZA VACCINE (#1) 2024 Respiratory Syncytial Virus (RSV) Vaccine Pt: [...] age to complete this topic Care Teams High Lift Driver Relationship Specialty Start Date End Date Bert Bee MD [address] [place] [address] PCP - General 11/13/13
== END 2025-01-12 09:48 | disposition home or self-care (01) ==
LOC: CHSIMG 09:48
PROVIDERS: PCP Family Medicine; Visit Provider Family Medicine
DX: M25.551 Pain in right hip (principal)
CPT/HCPCS: 73502